=== PATIENT | female | born 2000 | race Caucasian/White ===

== ENCOUNTER 2022-10-23 13:20 | Outpatient (REF) | payer MEDICAID, SELFPAY ==
[2022-10-23 17:17] LABS: Epithelial Cells Negative HPF (Negative)
[2022-10-23 17:18] LABS: Bacteria Negative HPF (Negative); C & S Indicated? C&S Done As Ordered; Casts Negative LPF (Negative); Crystals Negative HPF (Negative); Mucus Negative (Negative); Other Cells Few Renal (Negative)
[2022-10-26 13:22] LABS: Chlamydia Result Negative (Negative); GC Result Negative (Negative)
== END 2022-10-23 13:21 | disposition home or self-care (01) ==
LOC: LBN 13:20
PROVIDERS: Visit Provider Physician Assistant Medical
DX: R30.0 Dysuria (principal)
CPT/HCPCS: 87077; 87491; 87591; 81015; 87086; 87186; 87480; 87510; 87660

== ENCOUNTER 2023-01-04 08:58 | Outpatient (REF) | payer MEDICAID, SELFPAY ==
--- OUTSIDE RECORDS SUMMARY | 2023-01-04 09:01 | XMS_ITS | CCD ---
Author Name Unknown Address [address] [place] [address] [id number] Organization Unknown Address [address] [place], [place] [id number] Care Team Providers Care Overnight Babysitter Name Role Phone CHARLES MEJIA Attending Physician [phone] CHARLES MEJIA Rounding (Secondary) Physici an [phone] Vital Signs Unknown or Not Available. Allergies Allergy Code Allergy Type Reaction Status PENICILLINS (CLASS) 28691 Drug allergy Turn blue and Active Procedures Unknown or Not Available. History of Immunizations Unknown or Not Available. Problems Unknown or Not Available. Results Unknown or Not Available. Active Medications Unknown or Not Available. Medications Administered During Visit Unknown or Not Available. Encounters Encounter Diagnosis Diagnosis Code Start Date Encounter for supervision of other normal , third trimester [id number] 04/02/2021 Social History Smoking Status Code Start Date End Date Never smoker [id number] Patient Decision Aids Unknown or Not Available. Discharge Instructions You were admitted to [facility] on 04/02/2021 12:45 with a principal diagnosis of Encounter for supervision of other normal , third trimester You were discharged from [facility] on 04/02/2021 12:46 Should you have any questions prior to discharge, please contact a member of your healthcare team. If you have left the hospital and have any questions, please contact your primary care physician. Chief Complaint and Reason For Visit Unknown or Not Available. Function Status Unknown or Not Available. Plan of Care Unknown or Not Available. Referral/Transition of Care Unknown or Not Available.
--- OUTSIDE RECORDS SUMMARY | 2023-01-04 09:01 | XMS_ITS | CCD ---
Author Name Unknown Address [address] [place] [address] [id number] Organization Unknown Address [address] [place] [address] [id number] Care Team Providers Care Shaker Out Name Role Phone ISRAELSHARMILAANG Mayberry Attending Physician [phone] Vital Signs Vital Sign Value Unit Date/Time Recent/Initial ? BP Systolic 127 mmHg 04/17/2021 05:13 Initial VS BP Diastolic 73 mmHg 04/17/2021 05:13 Initia l VS Respiratory Rate 18 bpm 04/17/2021 05:13 In itial VS Heart Rate 93 bpm 04/17/2021 05:13 Initial VS Body Temperature 36.7 degrees 04/17/2021 05:13 In itial VS O2 % BldC Oximetry 98 % 04/17/2021 06:15 Initial VS O2 % BldC Oximetry 98 % 04/17/2021 20:00 Most Recent VS BP Systolic 124 mmHg 04/18/2021 08:15 Most Re cent VS BP Diastolic 85 mmHg 04/18/2021 08:15 Most R ecent VS Respiratory Rate 16 bpm 04/18/2021 08:[address] Recent VS Heart Rate 85 bpm 04/18/2021 08:15 Most Rec ent VS Body Temperature 36.5 degrees 04/18/2021 08:[address] Recent VS Allergies Allergy Code Allergy Type Reaction Status PENICILLINS (CLASS) 99029 Drug allergy Turn blue and Active Procedures Procedure Code Procedure Type Date Delivery of Products of Conc eption, External Approach [id number] ICD-10 PCS 04/17/2021 Repair Perineum Muscle, Open Approach [id number] ICD -10 PCS 04/17/2021 Monitoring of Products of Co nception, Cardiac Rate, External Approach [id number] ICD-10 PCS 04/17/2021 History of Immunizations Unknown or Not Available. Problems Unknown or Not Available. Results DAVINA COVID GENEXPERT* - Co llect Date/Time: 04/17/2021 04:50 Test Name Code Test Result Test Units Test Ref Gerardo EDGAR 21168-7 NEGATIVE N/A Normal: Negati ve Tier- INPATIENT/ED N/A Active Medications Medications Administered During Visit Medication Dose Units Frequency Route Date/Time of Last Dose DOCUSATE SODIUM CAPSULE: 100MG 100 MG BID PO 04/18/2021 07:58 ACETAMINOPHEN TABLET: 325MG 650 MG PRN Q4H PO 04/18/2021 07:58 IBUPROFEN TABLET: 600MG 600 MG PRN Q6H PO 04/18/2021 07:55 OXYTOCIN INJ SDV: 10UNITS/1ML 10 UNITS PRN X1 IM 04/17/2021 03:15 Encounters Encounter Diagnosis Diagnosis Code Start Date Second degree perineal laceration during deliver y O701 04/17/2021 Social History Smoking Status Code Start Date End Date Never smoker [id number] Patient Decision Aids Unknown or Not Available. Discharge Instructions You were admitted to [facility] on 04/17/2021 03:59 with a principal diagnosis of Second degree perineal laceration during delivery You had the following procedures done:Delivery of Products of Conception, External ApproachRepair Perineum Muscle, Open ApproachMonitoring of Products of Conception, Cardiac Rate, External Approach You had the following tests done:DAVINA SUTTONID GENEXPERT* You were discharged from [facility] on 04/18/2021 13:45 Should you have any questions prior to discharge, please contact a member of your healthcare team. If you have left the hospital and have any questions, please contact your primary care physician. Chief Complaint and Reason For Visit Chief Complaint Date of Onset TERM LABOR 04/17/2021 Function Status Unknown or Not Available. Plan of Care Unknown or Not Available. Referral/Transition of Care Unknown or Not Available.
--- OUTSIDE RECORDS SUMMARY | 2023-01-04 09:01 | XMS_ITS | CCD ---
Author Name Unknown Address [address] [place] [address] [phone] Organization Unknown Address [address] [place], [place] [phone] Care Team Providers Care Timber Skidder Name Role Phone CHARLES MEJIA Attending Physician [phone] CHARLES MEJIA Rounding (Secondary) Physici an [phone] Vital Signs Unknown or Not Available. Allergies Allergy Code Allergy Type Reaction Status PENICILLINS (CLASS) 53801 Drug allergy Turn blue and Active Procedures Unknown or Not Available. History of Immunizations Unknown or Not Available. Problems Unknown or Not Available. Results Unknown or Not Available. Active Medications Unknown or Not Available. Medications Administered During Visit Unknown or Not Available. Encounters Encounter Diagnosis Diagnosis Code Start Date Encounter for supervision of other normal , third trimester Z3483 04/10/2021 Social History Smoking Status Code Start Date End Date Never smoker [id number] Patient Decision Aids Unknown or Not Available. Discharge Instructions You were admitted to [facility] on 04/10/2021 13:50 with a principal diagnosis of Encounter for supervision of other normal , third trimester You were discharged from [facility] on 04/10/2021 13:51 Should you have any questions prior to [...]
--- OUTSIDE RECORDS SUMMARY | 2023-01-04 09:02 | XMS_ITS | CCD ---
Author Name Unknown Address [address] [place] [address] [phone] Organization Unknown Address [address] [place], [place] [phone] Care Team Providers Care Service Assistant Name Role Phone AMERICO WOOD Attending Physician [phone] AMERICO WOOD Rounding (Secondary) Physician [phone] Vital Signs Unknown or Not Available. Allergies Allergy Code Allergy Type Reaction Status PENICILLINS (CLASS) 79847 Drug allergy Turn blue and Active Procedures Unknown or Not Available. History of Immunizations Unknown or Not Available. Problems Unknown or Not Available. Results Unknown or Not Available. Active Medications Unknown or Not Available. Medications Administered During Visit Unknown or Not Available. Encounters Encounter Diagnosis Diagnosis Code Start Date Encounter for supervision of other normal , third trimester Z3483 04/16/2021 Social History Smoking Status Code Start Date End Date Never smoker [id number] Patient Decision Aids Unknown or Not Available. Discharge Instructions You were admitted to [facility] on 04/16/2021 14:20 with a principal diagnosis of Encounter for supervision of other normal , third trimester You were discharged from [facility] on 04/16/2021 14:20 Should you have any questions prior to [...]
--- OUTSIDE RECORDS SUMMARY | 2023-01-04 09:02 | XMS_ITS | CCD ---
Author Name Unknown Address [address] [place] [address] [phone] Organization Unknown Address [address] [place] [address] [id number] Care Team Providers Care Liquor Establishment Manager Name Role Phone TIFF BUSTILLOS NERI Attending Physician [phone] Vital Signs Unknown or Not Available. Allergies Allergy Code Allergy Type Reaction Status PENICILLINS (CLASS) 19141 Drug allergy Turn blue and Active Procedures Unknown or Not Available. History of Immunizations Unknown or Not Available. Problems Unknown or Not Available. Results THYROID TESTING CASCADE - Co llect Date/Time: 11/08/2020 16:03 Test Name Code Test Result Test Units Test Ref Rang e TSH. 3014-8 0.848 uIU/mL L=0.360 H=3.74 0 AFP (OB) ALPHA FETOPROTEIN - Collect Date/Time: 11/08/2020 16:03 Test Name Code Test Result Test Units Test Ref Rang e AFP 96341-6 28.1 ng/mL AFP MoM 41878-2 0.89 MoM <2.50 Maternal Weight 73603-7 180 lbs Number of Fetuses 18323-7 1 Physician Phone Number [phone] Results Summary 89625-6 Normal risk N/A Neural tube defect riskestimate 76625-9 N/A INTERPRETATION 34536-1 Screen negative for neural tube defects. N/A RECOMMENDED FOLLOW UP 59161-6 None. N/A Specimen collection date 65354-6 11/08/20 N/A Maternal [place] [address]-5 99 N/A Calculated age at NHAN 66617-9 20 years N/A Insulin dependentdiabetes 64019-4 No N/A Patient race 46669-0 non-Black N/A Current cigarettesmoking status 56567-1 non-Smoker N/A NHAN by U/S scan 22597-0 04/23/2021 N/A GA on collection by U/[facility] 00673-2 16,2 N/A GA used in risk estimate 45707-1 Scan estimate N/A Number of Chorions 37949-8 Not applicable N/A IVF 78825-4 No N/A Prev w/ NeuralTube Defect 60872-8 No N/A Patient or father benjamin has a NTD 18471-0 No N/A Initial or repeat testing 67893-8 Initial testing N/A GENERAL TEST INFORMATION 90634-4 See Below N/A Active Medications Unknown or Not Available. Medications Administered During Visit Unknown or Not Available. 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 Discharge Instructions You were admitted to [facility] on 11/08/2020 15:26 with a principal diagnosis of Thyrotoxicosis, unspecified without thyrotoxic crisis or storm You had the following tests done:AFP (OB) ALPHA FETOPROTEINTHYROID TESTING CASCADE You were discharged from [facility] on 11/08/2020 15:26 Should you have any questions prior to [...]
--- OUTSIDE RECORDS SUMMARY | 2023-01-04 09:02 | XMS_ITS | CCD ---
Author Name Unknown Address [address] [place] [address] [id number] Organization Unknown Address [address] [place], [place] [phone] Care Team Providers Care Brand Marketing Intern Name Role Phone CHARLES MEJIA Attending Physician [phone] CHARLES MEJIA Rounding (Secondary) Physici an [phone] Vital Signs Unknown or Not Available. Allergies Allergy Code Allergy Type Reaction Status PENICILLINS (CLASS) 28945 Drug allergy Turn blue and Active Procedures Unknown or Not Available. History of Immunizations Unknown or Not Available. Problems Unknown or Not Available. Results PAP THINPREP HPV IF ASC-US* - Collect Date/Time: 06/11/2021 17:48 Test Name Code Test Result Test Units Test Ref Rang e Report (See below) N/A Active Medications Unknown or Not Available. Medications Administered During Visit Unknown or Not Available. Encounters Encounter Diagnosis Diagnosis Code Start Date Encounter for routine follow-up Z392 06/11/2021 Social History Smoking Status Code Start Date End Date Never smoker [id number] Patient Decision Aids Unknown or Not Available. Discharge Instructions You were admitted to [facility] on 06/11/2021 10:00 with a principal diagnosis of Encounter for routine follow-up You had the following tests done:PAP THINPREP HPV IF ASC-US* You were discharged from [facility] on 06/11/2021 10:00 Should you have any questions prior to [...]
--- OUTSIDE RECORDS SUMMARY | 2023-01-04 09:02 | XMS_ITS | CCD ---
Author Name Unknown Address [address] [place] [address] [phone] Organization Unknown Address [address] [place], [place] [phone] Care Team Providers Care Back Wedger Name Role Phone TIFF BUSTILLOS NERI Attending Physician [phone] Vital Signs Unknown or Not Available. Allergies Allergy Code Allergy Type Reaction Status PENICILLINS (CLASS) 10259 Drug allergy Turn blue and Active Procedures Unknown or Not Available. History of Immunizations Unknown or Not Available. Problems Unknown or Not Available. Results Unknown or Not Available. Active Medications Unknown or Not Available. Medications Administered During Visit Unknown or Not Available. Encounters Encounter Diagnosis Diagnosis Code Start Date Obesity complicating , second trimester [id number] 12/13/2020 Social History Smoking Status Code Start Date End Date Never smoker [id number] Patient Decision Aids Unknown or Not Available. Discharge Instructions You were admitted to [facility] on 12/13/2020 09:26 with a principal diagnosis of Obesity complicating , second trimester You were discharged from [facility] on 12/13/2020 09:26 Should you have any questions prior to [...]
--- OUTSIDE RECORDS SUMMARY | 2023-01-04 09:02 | XMS_ITS | CCD ---
Author Name Unknown Address [address] [place] [address] [phone] Organization Unknown Address [address] [place], [place] [id number] Care Team Providers Care Cargo Checker Name Role Phone TIFF BUSTILLOS NERI Attending Physician [phone] Vital Signs Unknown or Not Available. Allergies Allergy Code Allergy Type Reaction Status PENICILLINS (CLASS) 68841 Drug allergy Turn blue and Active Procedures Unknown or Not Available. History of Immunizations Unknown or Not Available. Problems Unknown or Not Available. Results Unknown or Not Available. Active Medications Unknown or Not Available. Medications Administered During Visit Unknown or Not Available. Encounters Encounter Diagnosis Diagnosis Code Start Date Obesity complicating , second trimester Q63642 01/03/2021 Social History Smoking Status Code Start Date End Date Never smoker [id number] Patient Decision Aids Unknown or Not Available. Discharge Instructions You were admitted to [facility] on 01/03/2021 09:14 with a principal diagnosis of Obesity complicating , second trimester You were discharged from [facility] on 01/03/2021 09:14 Should you have any questions prior to [...]
--- OUTSIDE RECORDS SUMMARY | 2023-01-04 09:03 | XMS_ITS | CCD ---
Author Name Unknown Address [address] [place] [address] [id number] Organization Unknown Address [address] [place] [address] [id number] Care Team Providers Care Corporate Bond Trader Name Role Phone TURPIN YULY NERI Attending Physician [phone] Vital Signs Unknown or Not Available. Allergies Allergy Code Allergy Type Reaction Status PENICILLINS (CLASS) 82011 Drug allergy Turn blue and Active Procedures Unknown or Not Available. History of Immunizations Unknown or Not Available. Problems Unknown or Not Available. Results GLUCOSE - 1 HOUR AFTER 50GM GLUCOLA - Collect Date/Time: 01/31/2021 10:42 Test Name Code Test Result Test Units Test Ref Rang e GLUCOSE 1 HOUR 1504-0 97 mg/dL L=0 H=135 HEMOGRAM & PLATELET W/O DIFF - Collect Date/Time: 01/31/2021 10:42 Test Name Code Test Result Test Units Test Ref Rang e WBC 6690-2 9.33 th/cmm L=5.00 H=10.00 NRBC % 82302-5 0.0 % L=0.0 H=0.0 NRBC abs count 93672-2 0.0 mil/cmm L=0.0 H=0. 0 RBC 789-8 3.91 mil/cmm L=3.90 H=5.40 HEMOGLOBIN 718-7 12.3 gm/dL L=12.0 H=16.0 HEMATOCRIT 4544-3 37 % L=37 H=47 MCV 787-2 93 fL L=82 H=92 MCH 785-6 31.5 pg L=27.0 H=31.0 MCHC 786-4 33.7 % L=32.0 H=36.0 RDW-SD 788-0 44.0 fL L=39.0 H=49.0 PLATELET COUNT 777-3 217 th/cmm L=150 H=45 0 Active Medications Unknown or Not Available. Medications Administered During Visit Unknown or Not Available. Encounters Encounter Diagnosis Diagnosis Code Start Date Low weight gain in , third trimester O2 613 01/31/2021 Social History Smoking Status Code Start Date End Date Never smoker [id number] Patient Decision Aids Unknown or Not Available. Discharge Instructions You were admitted to [facility] on 01/31/2021 09:30 with a principal diagnosis of Low weight gain in , third trimester You had the following tests done:GLUCOSE - 1 HOUR AFTER 50GM GLUCOLAHEMOGRAM & PLATELET W/O DIFF You were discharged from [facility] on 01/31/2021 09:30 Should you have any questions prior to [...]
--- OUTSIDE RECORDS SUMMARY | 2023-01-04 09:03 | XMS_ITS | CCD ---
Author Name Unknown Address [address] [place] [address] [id number] Organization Unknown Address [address] [place], [place] [phone] Care Team Providers Care Running Rigger Name Role Phone CHARLES MEJIA CNM Attending Physician [phone] Vital Signs Unknown or Not Available. Allergies Allergy Code Allergy Type Reaction Status PENICILLINS (CLASS) 59827 Drug allergy Turn blue and Active Procedures Unknown or Not Available. History of Immunizations Unknown or Not Available. Problems Unknown or Not Available. Results Unknown or Not Available. Active Medications Unknown or Not Available. Medications Administered During Visit Unknown or Not Available. Encounters Encounter Diagnosis Diagnosis Code Start Date Low weight gain in , third trimester O2 613 02/25/2021 Social History Smoking Status Code Start Date End Date Never smoker [id number] Patient Decision Aids Unknown or Not Available. Discharge Instructions You were admitted to [facility] on 02/25/2021 15:00 with a principal diagnosis of Low weight gain in , third trimester You were discharged from [facility] on 02/25/2021 15:00 Should you have any questions prior to [...]
--- OUTSIDE RECORDS SUMMARY | 2023-01-04 09:03 | XMS_ITS | CCD ---
Author Name Unknown Address [address] [place] [address] [id number] Organization Unknown Address [address] [place] [address] [phone] Care Team Providers Care Shoe Stock Associate Name Role Phone AMERICO WOOD DENISSEShawanda Attending Physician [phone] Vital Signs Unknown or Not Available. Allergies Allergy Code Allergy Type Reaction Status PENICILLINS (CLASS) 10817 Drug allergy Turn blue and Active Procedures Unknown or Not Available. History of Immunizations Unknown or Not Available. Problems Unknown or Not Available. Results VAGINAL SMEAR EVALUATION - C ollect Date/Time: 02/12/2021 16:25 Test Name Code Test Result Test Units Test Ref Rang e TOTAL HALEIGH SCORE 4 WBC s moderate N/A Yeast. Few N/A Hyphae Present N/A Clue cells Not present N/A Active Medications Unknown or Not Available. Medications Administered During Visit Unknown or Not Available. Encounters Encounter Diagnosis Diagnosis Code Start Date Other specified noninflammatory disorders of vag keron N898 02/12/2021 Social History Smoking Status Code Start Date End Date Never smoker [id number] Patient Decision Aids Unknown or Not Available. Discharge Instructions You were admitted to on 02/12/2021 15:15 with a principal diagnosis of Other specified noninflammatory disorders of vagina You had the following tests done:VAGINAL SMEAR EVALUATION You were discharged from on 02/12/2021 15:15 Should you have any questions prior to [...]
[2023-01-05 12:19] LABS: Chlamydia Result Negative (Negative); GC Result Negative (Negative)
== END 2023-01-04 08:59 | disposition home or self-care (01) ==
LOC: NCHCN 08:58
PROVIDERS: Visit Provider Family Medicine
DX: R30.0 Dysuria (principal); Z11.3 Encounter for screening for infections with a predominantly sexual mode of transmission
CPT/HCPCS: 87491; 87591

== ENCOUNTER 2023-08-06 15:08 | Outpatient (REF) | payer MEDICAID, SELFPAY ==
[2023-08-07 14:18] LABS: Chlamydia Result Negative (Negative); GC Result Negative (Negative)
== END 2023-08-06 15:09 | disposition home or self-care (01) ==
LOC: NCHCN 15:08
PROVIDERS: Referring Provider Family Medicine; Visit Provider Family Medicine
DX: N89.8 Other specified noninflammatory disorders of vagina (principal); Z11.3 Encounter for screening for infections with a predominantly sexual mode of transmission
CPT/HCPCS: 87491; 87591; 87480; 87510; 87660

== ENCOUNTER 2024-01-06 22:03 | Outpatient (REF) | payer MEDICAID, SELFPAY ==
--- OUTSIDE RECORDS SUMMARY | 2024-01-06 22:04 | XMS_ITS | Encounter Summary ---
Author Organization [facility] Address [address] [place] [id number] Care Team Providers Care Folder Operator Name Role Phone Unavailable Primary Care Provider Unavailabl e Encounter Details Date Type Department Care Team (Late st Contact Info) Description 09/13/2020 Lab Requisition [facility] Pathology & Laboratory Medicine - [address] [phone] Outr Resulting Lab, Provider Social History Tobacco Use Types Packs/Day Years Used Date Smoking Tobacco: Never Assessed Sex and Gender Information Value Date Recorded Sex Assigned at Not on file Gender Identity Not on file Sexual Orientation Not on file documented as of this encounter Plan of Treatment Not on file documented as of this encounter Procedures Procedure Name Priority Date/Time Associated Diagnosis Comments CHLAMYDIA/N. GONORRHOEAE AMPLIFIED NUCLEIC ACID Routine 09/13/2020 11:15 EDT documented in this encounter Results * CHLAMYDIA/N. GONORRHOEAE AMPLIFIED RNA (09/13/2020 11:15 EDT) Neisseria gonorrhoeae Result Negative Negative 09/16/2020 15:14 EDT [facility] Chlamydia trachomatis Result Negative Negative 09/16/2020 15:14 EDT [facility] Urine URINE / Unknown 09/13/2020 1 1:15 EDT 09/13/2020 21:55 EDT Narrative [facility] - 09/16/2020 15:14 EDT A first catch urine specimen is acceptable for detection of Gonorrhea and Chlamydia, but might detect up to 10% fewer infections when compared with vaginal and endocervical swab samples. Provider Outr Resulting Lab MICROBIOLOGY - GENERAL ORDERABLES Performing Organization Address City/State/[facility] Co de Phone Number [facility] [address] [place] [address] documented in this encounter Visit Diagnoses Not on filedocumented in this encounter
--- OUTSIDE RECORDS SUMMARY | 2024-01-06 22:04 | XMS_ITS | Encounter Summary ---
Author Organization [facility] Address [address] [place] [address] Care Team Providers Care Associate Sales Manager Name Role Phone Unavailable Primary Care Provider Unavailabl e Encounter Details Date Type Department Care Team (Late st Contact Info) Description 09/30/2020 Lab Requisition [facility] Pathology & Laboratory Medicine - [facility] [address] [place], [place] [address] Outr Resulting Lab, Provider Social History Tobacco [...] Procedure Name Priority Date/Time Associated Diagnosis Comments HEPATITIS B SURFACE ANTIGEN Routine 09/30/2020 8:59 EDT documented in this encounter Results * HEPATITIS B SURFACE ANTIGEN (09/30/2020 8:59 EDT) Hep B Surface Ag Negative Negative 10/01/2020 9:59 EDT [facility] Blood VENOUS BLOOD / Unknown 09/30/2020 8:59 EDT 09/30/2020 21:47 EDT Provider Outr Resulting Lab CHEMISTRY & BLOOD GAS ORDERABLES [facility] [address] [place] [address] documented in this encounter Visit Diagnoses Not on filedocumented in this encounter
--- OUTSIDE RECORDS SUMMARY | 2024-01-06 22:04 | XMS_ITS | Encounter Summary ---
Author Organization [facility] Address [address] [place] [address] Care Team Providers Care Experimental Mechanic Electrical Name Role Phone Unavailable Primary Care Provider Unavailabl e Encounter Details Date Type Department Care Team (Late st Contact Info) Description 09/30/2020 Lab Requisition [facility] Pathology & Laboratory Medicine - [facility] [address] [place], [place] [phone] Outr Resulting Lab, Provider Social History Tobacco [...] Procedure Name Priority Date/Time Associated Diagnosis Comments SYPHILIS SEROLOGY Routine 09/30/2020 8:59 EDT documented in this encounter Results * SYPHILIS SEROLOGY (09/30/2020 8:59 EDT) Syphilis Serology Negative Negative 10/01/2020 11:01 EDT [facility] Blood VENOUS BLOOD / Unknown 09/30/2020 8:59 EDT 09/30/2020 21:47 EDT Provider Outr Resulting Lab IMMUNOLOGY A ND SEROLOGY ORDERABLES [facility] [address] [place] [address] documented in this encounter Visit Diagnoses Not on filedocumented in this encounter
--- OUTSIDE RECORDS SUMMARY | 2024-01-06 22:04 | XMS_ITS | Encounter Summary ---
Author Organization [facility] Address [address] [place] [address] Care Team Providers Care Director Correctional Agency Name Role Phone Unavailable Primary Care Provider Unavailabl e Encounter Details Date Type Department Care Team (Late st Contact Info) Description 10/24/2022 Lab Requisition [facility] Pathology & Laboratory Medicine - [facility] [address] [place], [place] [address] Outr Resulting Lab, Provider Social History Tobacco Use Types Packs/Day Years Used Date Smoking Tobacco: Never Assessed Interpersonal Safety Answer Date Record ed Physically Hurt Never 10/15/2020 Verbally Threaten Not on file 10/15/2020 Sex and Gender Information Value Date Recorded Sex Assigned at Not on file Gender Identity Not on file Sexual Orientation Not on file documented as of this encounter Plan of Treatment Not on file documented as of this encounter Procedures Procedure Name Priority Date/Time Associated Diagnosis Comments CHLAMYDIA/N. GONORRHOEAE AMPLIFIED NUCLEIC ACID Routine 10/23/2022 13:42 EDT documented in this encounter Results * CHLAMYDIA/N. GONORRHOEAE AMPLIFIED RNA (10/23/2022 13:42 EDT) Neisseria gonorrhoeae Result Negative Negative 10/26/2022 13:17 EDT [facility] Chlamydia trachomatis Result Negative Negative 10/26/2022 13:17 EDT [facility] Swab ENTIRE VAGINA / Unknown 10/23/2022 13:42 EDT 10/25/2022 18:30 EDT Provider Outr Resulting Lab MICROBIOLOGY - GENERAL ORDERABLES [facility] [address] [place] [address] documented in this encounter Visit Diagnoses Not on filedocumented in this encounter
--- OUTSIDE RECORDS SUMMARY | 2024-01-06 22:04 | XMS_ITS | Encounter Summary ---
Author Organization [facility] Address [address] [place] [address] Care Team Providers Care First Leveler Name Role Phone Unavailable Primary Care Provider Unavailabl e Encounter Details Date Type Department Care Team (Latest Contact Info) Description 12/06/2020 10:19 EDT - 12/06/2020 23:59 EDT Hospital Encounter [facility] [address] [place] [address] Family history of congenital heart defect; Obesity in Discharge Disposition: Home or Self Care Social History Tobacco Use Types Packs/Day Years Used Date Smoking Tobacco: Never Assessed Interpersonal Safety Answer Date Record ed Physically Hurt Never 10/15/2020 Verbally Threaten Not on file 10/15/2020 Sex and Gender Information Value Date Recorded Sex Assigned at Not on file Gender Identity Not on file Sexual Orientation Not on file documented as of this encounter Discharge Disposition Disposition Code Departure Means Destination Home or Self Care documented in this encounter Plan of Treatment Not on file documented as of this encounter Procedures Procedure Name Priority Date/Time Associated Diagnosis Comments US OB DETAILED Routine 12/06/2020 10:46 EDT Family history of congenital heart defect Obesity in documented in this encounter Results * US OB DETAILED (12/06/2020 10:46 EDT) Anatomical Region Laterality Modality Pelvis Ultrasound 12/06/2020 10:2 8 EDT Narrative 12/06/2020 11:12 EDT Indication Grandmother with aortic stenosis. BMI 30.8. History ======= General History Height 165 cm Height (ft) ?5 ft Height (in) ?5 in Previous Outcomes ?2 Para ?? 1 Gutierrez children born (T) ?1 Gutierrez children born (P) ?0 Abortions (A) ??0 Gutierrez living children (L) ??1 Maternal Assessment Height 165 cm Height (ft) ?5 ft Height (in) ?5 in Physical Exam Initial weight 84 kg Initial weight (lb) ?185 lb Initial BMI ?30.79 kg/m?? Number of fetuses: 1. Dating ======= Method of dating: ??based on the external assessment Stated Dating on: ?09/03/2020 GA at stated dating date 6 w + 6 d GA by stated dating ??20 w + 2 d NHAN by stated dating: ?04/23/2021 Ultrasound examination on: 12/06/2020 GA by U/S based upon: ??AC, BPD, Femur GA by U/S ??20 w + 1 d NHAN by U/S: ?04/24/2021 Assigned: ??Dating performed on 12/06/2020, based on the external assessment (on 09/03/2020) Assigned GA ?20 w + 2 d Assigned NHAN: ??04/23/2021 General Evaluation Cardiac activity: Present. FHR 161 bpm. movements: visualized. Presentation: breech. Placenta: posterior, fundal. Umbilical cord: Cord vessels: 3 vessel cord. Cord insertion: placental insertion: normal. Amniotic fluid: Amount of AF: normal. Biometry Biometry BPD ?45.7 mm 30% 19w 6d Hadlock OFD ?59.0 mm 58% 20w 4d Eric HC 166.9 mm ?22% Chervenak AC 154.7 mm ?56% 20w 5d Hadlock Femur ??31.7 mm 48% 20w 0d Eric Cerebellum tr ??20.9 mm 58% 20w 4d Cervantes CM 5.3 mm ??57% Nicolaides Nuchal fold ?3.95 mm Humerus ?32.1 mm 70% 20w 5d Eric EFW ?337 g Calculated by: Hadlock ([id number]) EFW (lb) ?? 0 lb EFW (oz) ?? 12 oz Cephalic index 0.77 ?35% Nicolaides HC / AC ?1.08 ?7% Hadlock FL / BPD ?? 0.69 ?37% Hadlock FL / AC ?0.20 ?14% Hadlock FHR ?161 bpm Head / Face / Neck Zone Manager 6.1 mm Nasal bone 5.7 mm Extremities / Bony Struc Radius 27.1 mm 46% Chitty Ulna ?? 29.3 mm 56% 21w 0d Eric Tibia ??27.9 mm 51% 20w 1d Eric Fibula 28.2 mm 44% 20w 0d Eric Anatomy Cranium: ?? normal Lateral ventricles: ?normal Choroid plexus: ?normal Midline falx: ??normal Cavum septi pellucidi: normal Cerebellum: ?normal Cisterna magna: ?normal Parenchyma: ?normal Cerebellar lobes: ??normal Vermis: ?normal Neck: ??normal Nuchal fold: ?? normal Lips: ??normal Profile: ?? normal Nose: ??normal Maxilla: ?? normal Mandible: ??normal 4-chamber view: ?normal RVOT: ??normal LVOT: ??normal Situs: normal Aortic arch: ?? normal SVC: ?? normal IVC: ?? normal 3-vessel view: normal 5-[id number]-jqoihfe view: normal Rt lung: ?? normal Lt lung: ?? normal Diaphragm: normal Cord insertion: ?normal Stomach: ?? normal Bladder: ?? normal Genitals: ??normal Abdom. wall: ?? normal Rt kidney: normal Lt kidney: normal Liver: normal Cervical spine: ?normal Thoracic spine: ?normal Lumbar spine: ??normal Sacral spine: ??normal Skeleton: ??normal Arms: ??normal Legs: ??normal Rt arm: ?normal Lt arm: ?normal Rt hand: ?? normal Lt hand: ?? normal Rt leg: ?normal Lt leg: ?normal Rt foot: ?? normal Lt foot: ?? normal Gender: ?female Wants to know gender: ??yes Aneuploidy Screening Age ?20 yrs Echogenic focus: ?? no Include: ?? intracardiac echogenic focus Include: ?? ventriculomegaly Include: ?? nuchal fold Include: ?? echogenic bowel Include: ?? mild hydronephrosis Ventriculomegaly: ??no Nuchal fold: ?? normal Echogenic bowel: ?? no Pyelectasis: ?? no Short femur: ?? no Include: ?? short humerus Include: ?? nasal bone Short humerus: no Nasal bone: ?present Display risk: ??Risk at time of screening Background risk at time of screening ?? 1,288 Background risk at term ?1,513 Adjusted risk at time of screening 3,481 Adjusted risk at term ??4,087 Other: She has had normal results on a cell-free DNA in maternal serum test. Maternal Structures Uterus / Cervix Uterus: ?Appears normal Cervix: ?Appears normal Ovaries / Tubes / Adnexa Rt ovary: ??Visualized, normal appearance Lt ovary: ??Visualized, normal appearance Method ======== Transabdominal ultrasound examination, Voluson E10. View: Sufficient. Impression [id number] Obstetrical ultrasound with and maternal evaluation, including detailed anatomic examination This is a gutierrez gestation. Biometry is consistent with prior ultrasound dating. Anatomy appears normal as noted above; however, ultrasound cannot detect all anomalies. As per the SMFM guidelines, the following were evaluated and were normal: the cerebellum (including lobes and vermis), facial profile, the chest (including examination for masses, effusion, integrity of both sides of the diaphragm and lung parenchyma), abdomen for ascites, 12-long bones with normal architecture/position of limbs, hands and feet, placental insertion site of the umbilical cord and placenta for masses. The amniotic fluid volume is normal. There is trunk and extremity movement noted. Follow-up Follow-up as clinically indicated. DATE OF SERVICE: 12/06/2020 Procedure Note Paris Loev MD - 12/06/2020 Indication Grandmother with aortic stenosis. BMI 30.8. History ======= General History Height 165 cm Height (ft) 5 ft Height (in) 5 in Previous Outcomes 2 Para 1 Gutierrez children born (T) 1 Gutierrez children born (P) 0 Abortions (A) 0 Gutierrez living children (L) 1 Maternal Assessment Height 165 cm Height (ft) 5 ft Height (in) 5 in Physical Exam Initial weight 84 kg Initial weight (lb) 185 lb Initial BMI 30.79 kg/m?? Number of fetuses: 1. Dating ======= Method of dating: based on the external assessment Stated Dating on: 09/03/2020 GA at stated dating date 6 w + 6 d GA by stated dating 20 w + 2 d NHAN by stated datin04/23/2021 Ultrasound examination on: 12/06/2020 GA by U/S based upon: AC, BPD, Femur GA by U/S 20 w + 1 d NHAN by U/S: 04/24/2021 Assigned: Dating performed on 12/06/2020, based on the external assessment(on 09/03/2020) Assigned GA 20 w + 2 d Assigned NHAN: 04/23/2021 General Evaluation Cardiac activity: Present. FHR 161 bpm. movements: visualized. Presentation: breech. Placenta: posterior, fundal. Umbilical cord: Cord vessels: 3 vessel cord. Cord insertion: placentalinsertion: normal. Amniotic fluid: Amount of AF: normal. Biometry Biometry BPD 45.7 mm 30% 19w 6d Hadlock OFD 59.0 mm 58% 20w 4d Eric HC 166.9 mm 22% Chervenak AC 154.7 mm 56% 20w 5d Hadlock Femur 31.7 mm 48% 20w 0d Eric Cerebellum tr 20.9 mm 58% 20w 4d Cervantes CM 5.3 mm 57% Nicolaides Nuchal fold 3.95 mm Humerus 32.1 mm 70% 20w 5d Eric EFW 337 g Calculated by: Hadlock ([id number]) EFW (lb) 0 lb EFW (oz) 12 oz Cephalic index 0.77 35% Nicolaides HC / AC 1.08 7% Hadlock FL / BPD 0.69 37% Hadlock FL / AC 0.20 14% Hadlock FHR 161 bpm Head / Face / Neck Zone Manager 6.1 mm Nasal bone 5.7 mm Extremities / Bony Struc Radius 27.1 mm 46% Chitty Ulna 29.3 mm 56% 21w 0d Eric Tibia 27.9 mm 51% 20w 1d Eric Fibula 28.2 mm 44% 20w 0d Eric Anatomy Cranium: normal Lateral ventricles: normal Choroid plexus: normal Midline falx: normal Cavum septi pellucidi: normal Cerebellum: normal Cisterna magna: normal Parenchyma: normal Cerebellar lobes: normal Vermis: normal Neck: normal Nuchal fold: normal Lips: normal Profile: normal Nose: normal Maxilla: normal Mandible: normal 4-chamber view: normal RVOT: normal LVOT: normal Situs: normal Aortic arch: normal SVC: normal IVC: normal 3-vessel view: normal 1-jrxbol-azeyvug view: normal Rt lung: normal Lt lung: normal Diaphragm: normal Cord insertion: normal Stomach: normal Bladder: normal Genitals: normal Abdom. wall: normal Rt kidney: normal Lt kidney: normal Liver: normal Cervical spine: normal Thoracic spine: normal Lumbar spine: normal Sacral spine: normal Skeleton: normal Arms: normal Legs: normal Rt arm: normal Lt arm: normal Rt hand: normal Lt hand: normal Rt leg: normal Lt leg: normal Rt foot: normal Lt foot: normal Gender: female Wants to know gender: yes Aneuploidy Screening Age 20 yrs Echogenic focus: no Include: intracardiac echogenic focus Include: ventriculomegaly Include: nuchal fold Include: echogenic bowel Include: mild hydronephrosis Ventriculomegaly: no Nuchal fold: normal Echogenic bowel: no Pyelectasis: no Short femur: no Include: short humerus Include: nasal bone Short humerus: no Nasal bone: present Display risk: Risk at time of screening Background risk at time of screening 1,288 Background risk at term 1,513 Adjusted risk at time of screening 3,481 Adjusted risk at term 4,087 Other: She has had normal results on a cell-free DNA in maternalserum test. Maternal Structures Uterus / Cervix Uterus: Appears normal Cervix: Appears normal Ovaries / Tubes / Adnexa Rt ovary: Visualized, normal appearance Lt ovary: Visualized, normal appearance Method ======== Transabdominal ultrasound examination, Voluson E10. View: Sufficient. Impression [id number] Obstetrical ultrasound with and maternal evaluation, includingdetailed anatomic examination This is a gutierrez gestation. Biometry is consistent with prior ultrasound dating. Anatomy appearsnormal as noted above; however, ultrasound cannot detect allfetal anomalies. As per the SMFM guidelines, the following were evaluated and were normal:the cerebellum (including lobes and vermis), facial profile, the chest(including examination for masses, effusion, integrity of both sides ofthe diaphragm and lung parenchyma), abdomen for ascites, 12-long boneswith normal architecture/position of limbs, hands and feet, placentalinsertion site of the umbilical cord and placenta for masses. The amniotic fluid volume is normal. There is trunk and extremitymovement noted. Follow-up Follow-up as clinically indicated. DATE OF SERVICE: 12/06/2020 Swetha Jenkins CNM [facility] OB ORDERABLES documented in this encounter Visit Diagnoses Diagnosis Family history of congenital heart defect Family history of congenital anomalies Obesity in Obesity complicating , childbirth, or the puerperium, unspecified as to episode of care or not applicable documented in this encounter
--- OUTSIDE RECORDS SUMMARY | 2024-01-06 22:04 | XMS_ITS | Encounter Summary ---
Author Organization [facility] Address [address] [place] [address] Care Team Providers Care Lithographic Press Operator Name Role Phone Unavailable Primary Care Provider Unavailabl e Encounter Details Date Type Department Care Team (Late st Contact Info) Description 09/30/2020 Lab Requisition [facility] Pathology & Laboratory Medicine - [facility] [address] [place] [address] Outr Resulting Lab, Provider Social History Tobacco [...] Name Priority Date/Time Associated Diagnosis Comments HEPATITIS C AB W REFLEX TO HCV RNA BY PCR Routine 09/30/2020 8:59 EDT documented in this encounter Results * HEPATITIS C AB W REFLEX TO HCV RNA BY PCR (09/30/2020 8:59 EDT) Hep C Antibody Negative Negative 10/01/2020 10:31 EDT [facility] Blood VENOUS BLOOD / Unknown 09/30/2020 8:59 EDT 09/30/2020 21:47 EDT Provider Outr Resulting Lab CHEMISTRY & BLOOD GAS ORDERABLES [facility] [address] [place] [address] documented in this encounter Visit Diagnoses Not on filedocumented in this encounter
--- OUTSIDE RECORDS SUMMARY | 2024-01-06 22:04 | XMS_ITS | Encounter Summary ---
Author Organization [facility] Address [address] [place] [address] Care Team Providers Care Health And Safety Technician Name Role Phone Unavailable Primary Care Provider Unavailabl e Encounter Details Date Type Department Care Team (Late st Contact Info) Description 09/19/2019 Lab Requisition [facility] Pathology & Laboratory Medicine - [facility] [address] [place] [address] Unknown, Provider, Social History Tobacco Use Types Packs/Day Years Used Date Smoking Tobacco: Never Assessed Sex and Gender Information Value Date Recorded Sex Assigned at Not on file Gender Identity Not on file Sexual Orientation Not on file documented as of this encounter Plan of Treatment Not on file documented as of this encounter Procedures Procedure Name Priority Date/Time Associated Diagnosis Comments ZZCOVID-19 TEST [facility] PCR Today 09/19/2019 17:34 EDT COVID-19 TESTING Routine 09/19/2019 17:3 4 EDT documented in this encounter Results * COVID-19 TEST [facility] PCR (09/19/2019 17:34 EDT) Swab ENTIRE NASOPHARYNX / Unknown 09/19/2019 17:34 EDT 09/19/2019 21:19 EDT Provider Unknown MICROBIOLOGY - GENER AL ORDERABLES [facility] [address] [place] [address] * COVID-19 TESTING (09/19/2019 17:34 EDT) COVID-19 rt-PCR Result Negative Negative 09/20/2019 14:26 EDT [facility] Comment: Negative results do not preclude 2019-nCoV infection and should not be used as the sole basis for treatment or other patient management decisions. Negative results must be combined with clinical observations, patient history, and epidemiological information. This test has not been FDA cleared or approved. This test has been internally validated, but independent review and determination of emergency use authorization ??(EUA) by the FDA is pending. Performed on the [employer] Fast Performing Lab [facility] 09/20/2019 14:26 EDT [facility] Swab ENTIRE NASOPHARYNX / Unknown 09/19/2019 17:34 EDT 09/19/2019 21:19 EDT Provider Unknown MICROBIOLOGY - RAJAN AL ORDERABLES [facility] [address] [place] [address] documented in this encounter Visit Diagnoses Not on filedocumented in this encounter
--- OUTSIDE RECORDS SUMMARY | 2024-01-06 22:04 | XMS_ITS | Encounter Summary ---
Author Organization [facility] Address [address] [place] [address] Care Team Providers Care Warehouse Logistics Manager Name Role Phone Unavailable Primary Care Provider Unavailabl e Encounter Details Date Type Department Care Team (Late st Contact Info) Description 09/30/2020 Lab Requisition [facility] Pathology & Laboratory Medicine - [facility] [address] [place], [place] [id number] Outr Resulting Lab, Provider Social History Tobacco [...] Comments CHLAMYDIA/N. GONORRHOEAE AMPLIFIED NUCLEIC ACID Routine 09/30/2020 8:59 EDT documented in this encounter Results * CHLAMYDIA/N. GONORRHOEAE AMPLIFIED RNA (09/30/2020 8:59 EDT) Neisseria gonorrhoeae Result Negative Negative 10/01/2020 13:45 EDT [facility] Chlamydia trachomatis Result Negative Negative 10/01/2020 13:45 EDT [facility] Urine URINE / Unknown 09/30/2020 8 :59 EDT 09/30/2020 21:00 EDT Narrative [facility] - 10/01/2020 13:45 EDT A first catch urine specimen is acceptable for detection of Gonorrhea and Chlamydia, but might detect up to 10% fewer infections when compared with vaginal and endocervical swab samples. Provider Outr Resulting Lab MICROBIOLOGY - GENERAL ORDERABLES [facility] [address] [place] [address] documented in this encounter Visit Diagnoses Not on filedocumented in this encounter
--- OUTSIDE RECORDS SUMMARY | 2024-01-06 22:04 | XMS_ITS | Encounter Summary ---
Author Organization [facility] Address [address] [place] [address] Care Team Providers Care Engineering Assistant Name Role Phone Unavailable Primary Care Provider Unavailabl e Encounter Details Date Type Department Care Team (Late st Contact Info) Description 09/30/2020 Lab Requisition [facility] Pathology & Laboratory Medicine - [facility] [address] [place], [place] [id number] Outr Resulting Lab, Provider Social History Tobacco [...] Procedure Name Priority Date/Time Associated Diagnosis Comments HIV 1/2 ANTIGEN AND ANTIBODY, 4TH GENERATION Routine 09/30/2020 8:59 EDT documented in this encounter Results * HIV 1/2 ANTIGEN AND ANTIBODY, 4TH GENERATION (09/30/2020 8:59 EDT) HIV 1 and 2 Antibody/p24 Antigen, 4th Generation Negative Negative 10/01/2020 10:23 EDT [facility] Comment: If acute HIV-1 infection is suspected in a high risk ??patient, submit plasma specimen for HIV-1 RNA quantitation test. Fourth Generation assay performed on the Siemens Centaur. Blood VENOUS BLOOD / Unknown 09/30/2020 8:59 EDT 09/30/2020 21:47 EDT Provider Outr Resulting Lab IMMUNOLOGY A ND SEROLOGY ORDERABLES [facility] [address] [place] [address] documented in this encounter Visit Diagnoses Not on filedocumented in this encounter
--- OUTSIDE RECORDS SUMMARY | 2024-01-06 22:04 | XMS_ITS | Encounter Summary ---
Author Organization [facility] Address [address] [place] [address] Care Team Providers Care Shell Machine Operator Name Role Phone Unavailable Primary Care Provider Unavailabl e Encounter Details Date Type Department Care Team (Late st Contact Info) Description 01/04/2023 Lab Requisition [facility] Pathology & Laboratory Medicine - [facility] [address] [place], [place] [address] Outr Resulting Lab, Provider Social History Tobacco [...] Comments CHLAMYDIA/N. GONORRHOEAE AMPLIFIED NUCLEIC ACID Routine 01/04/2023 8:25 EDT documented in this encounter Results * CHLAMYDIA/N. GONORRHOEAE AMPLIFIED RNA (01/04/2023 8:25 EDT) Neisseria gonorrhoeae Result Negative Negative 01/05/2023 12:14 EDT [facility] Chlamydia trachomatis Result Negative Negative 01/05/2023 12:14 EDT [facility] Swab ENTIRE VAGINA / Unknown 01/04/2023 8:25 EDT 01/04/2023 21:32 EDT Provider Outr Resulting Lab MICROBIOLOGY - GENERAL ORDERABLES [facility] [address] [place] [address] documented in this encounter Visit Diagnoses Not on filedocumented in this encounter
--- OUTSIDE RECORDS SUMMARY | 2024-01-06 22:04 | XMS_ITS | Encounter Summary ---
Author Organization [facility] Address [address] [place] [address] Care Team Providers Care Patient Office Rep Name Role Phone Unavailable Primary Care Provider Unavailabl e Encounter Details Date Type Department Care Team (Late st Contact Info) Description 09/30/2020 Lab Requisition [facility] Pathology & Laboratory Medicine - [facility] [address] [place] [address] Outr Resulting Lab, Provider Social History Tobacco [...] Procedure Name Priority Date/Time Associated Diagnosis Comments RUBELLA IGG ANTIBODY Routine 09/30/2020 8:59 EDT documented in this encounter Results * RUBELLA IGG ANTIBODY (09/30/2020 8:59 EDT) Rubella IgG Ab Positive See Note 10/01/2020 10:26 EDT [facility] Comment:Positive for IgG ant ibodies to Rubella virus. Blood VENOUS BLOOD / Unknown 09/30/2020 8:59 EDT 09/30/2020 21:47 EDT Provider Outr Resulting Lab CHEMISTRY & BLOOD GAS ORDERABLES [facility] [address] [place] [address] documented in this encounter Visit Diagnoses Not on filedocumented in this encounter
--- OUTSIDE RECORDS SUMMARY | 2024-01-06 22:04 | XMS_ITS | Encounter Summary ---
Author Organization [facility] Address [address] [place] [address] Care Team Providers Care Sap Bw Developer Name Role Phone Unavailable Primary Care Provider Unavailabl e Encounter Details Date Type Department Care Team (Late st Contact Info) Description 08/06/2023 Lab Requisition [facility] Pathology & Laboratory Medicine - [address] [id number] Outr Resulting Lab, Provider Social History Tobacco [...] Comments CHLAMYDIA/N. GONORRHOEAE AMPLIFIED NUCLEIC ACID Routine 08/06/2023 8:00 EST documented in this encounter Results * CHLAMYDIA/N. GONORRHOEAE AMPLIFIED RNA (08/06/2023 8:00 EST) Neisseria gonorrhoeae Result Negative Negative 08/07/2023 14:13 EST [facility] Chlamydia trachomatis Result Negative Negative 08/07/2023 14:13 EST [facility] Swab VAGINAL STRUCTURE / Unknown 08/06/2023 8:00 EST 08/06/2023 22:51 EST Provider Outr Resulting Lab MICROBIOLOGY - GENERAL ORDERABLES [facility] [address] [place] [address] documented in this encounter Visit Diagnoses Not on filedocumented in this encounter
--- OUTSIDE RECORDS SUMMARY | 2024-01-06 22:04 | XMS_ITS | Clinical Summary ---
Author Organization [facility] Address [address] [place] [address] Care Team Providers Care Form Layer Name Role Phone Unavailable Primary Care Provider Unavailabl e Social History Tobacco Use Types Packs/Day Years Used Date Smoking Tobacco: Never Assessed Interpersonal Safety Answer Date Record ed Physically Hurt Never 10/15/2020 Verbally Threaten Not on file 10/15/2020 Sex and Gender Information Value Date Recorded Sex Assigned at Not on file Gender Identity Not on file Sexual Orientation Not on file Plan of Treatment Health Maintenance Due Date Last Done Comments Hepatitis B Vaccine (1 of 3 - 19+ 3-dose series) 12/29 COVID-19 Vaccine (2022-24 season) 2023 Hepatitis C Screen Completed 09/30/2020 Procedures Procedure Name Priority Date/Time Associated Diagnosis Comments HEPATITIS C AB W REFLEX TO HCV RNA BY PCR Routine 09/30/2020 8:59 EDT from Last 3 Months or Most Recently Relevant to Health Maintenance Results * HEPATITIS C AB W REFLEX TO HCV RNA BY PCR (09/30/2020 8:59 EDT) Hep C Antibody Negative Negative 10/01/2020 10:31 EDT [facility] Blood VENOUS BLOOD / Unknown 09/30/2020 8:59 EDT 09/30/2020 21:47 EDT Provider Outr Resulting Lab CHEMISTRY & BLOOD GAS ORDERABLES [facility] [address] [place] [address] from Last 3 Months or Most Recently Relevant to Health Maintenance Chuy Lilia R Personal/Family Self 2000 [address] [facility] [place] [address] Chuy Lilia R Personal/Family Self 2000 [address] [place] [address]
--- OUTSIDE RECORDS SUMMARY | 2024-01-06 22:04 | XMS_ITS | Encounter Summary ---
Author Organization [facility] Address [address] [place] [address] Care Team Providers Care Change Management Administrator Name Role Phone Unavailable Primary Care Provider Unavailabl e Encounter Details Date Type Department Care Team (Late st Contact Info) Description 09/30/2020 Lab Requisition [facility] Pathology & Laboratory Medicine - [facility] [address] [place], [place] [id number] Outr Resulting Lab, Provider Social History Tobacco [...] Procedure Name Priority Date/Time Associated Diagnosis Comments T3, TOTAL Routine 09/30/2020 8:59 EDT documented in this encounter Results * (ABNORMAL) T3, TOTAL (09/30/2020 8:59 EDT) T3, Total 213(H) 97 - 169 ng/dL 09/30/2020 22:43 EDT [facility] Blood VENOUS BLOOD / Unknown 09/30/2020 8:59 EDT 09/30/2020 21:47 EDT Provider Outr Resulting Lab CHEMISTRY & BLOOD GAS ORDERABLES [facility] [address] [place] [address] documented in this encounter Visit Diagnoses Not on filedocumented in this encounter
--- OUTSIDE RECORDS SUMMARY | 2024-01-06 22:04 | XMS_ITS | Referral Summary ---
Author Organization [facility] Address [address] [place] [address] Care Team Providers Care Marketing Communications Manager Name Role Phone Unavailable Primary Care [...] Orientation Not on file Plan of Treatment Not on file Procedures Procedure Name Priority Date/Time Associated Diagnosis Comments HEPATITIS C AB W REFLEX TO HCV RNA BY PCR Routine 09/30/2020 8:59 EDT from Last 3 Months or Most Recently Relevant to Health Maintenance Results * HEPATITIS C AB W REFLEX TO HCV RNA BY PCR (09/30/2020 8:59 EDT) Hep C Antibody Negative Negative 10/01/2020 10:31 EDT [facility] Blood VENOUS BLOOD / Unknown 09/30/2020 8:59 EDT 09/30/2020 21:47 EDT Provider Outr Resulting Lab CHEMISTRY & BLOOD GAS ORDERABLES [facility] [address] [place] [address] from Last 3 Months or Most Recently Relevant to Health Maintenance Wood Lilia R Personal/Family Self 2000 [address] [facility] [place] [address] Wood, Lilia R Personal/Family Self 2000 [address] [facility] [place] [address]
--- OUTSIDE RECORDS SUMMARY | 2024-01-06 22:04 | XMS_ITS | Encounter Summary ---
Author Organization [facility] Address [address] [place] [address] Care Team Providers Care Metals Analyst Name Role Phone Unavailable Primary Care Provider Unavailabl e Encounter Details Date Type Department Care Team (Late st Contact Info) Description 06/11/2021 Lab Requisition [facility] Pathology & Laboratory Medicine - [facility] [address] [place] [address] Kena Angel, [facility] [address] [place] [address] Encounter for screening for malignant neoplasm of cervix Social History Tobacco Use Types Packs/Day Years [...] Procedure Name Priority Date/Time Associated Diagnosis Comments PAP TEST Today 06/11/2021 17:48 EST documented in this encounter Results * PAP TEST (06/11/2021 17:48 EST) Specimens A. Cervix and/or Endocervix , ThinPrep Imaging System with Manual Evaluation 06/19/2021 9:10 EST [facility] Specimen Adequacy Satisfactory for Evaluation - transformation zone component present 06/19/2021 9:10 EST [facility] General Categorization Negative for intraepithelial lesion or malignancy 06/19/2021 9:10 EST [facility] Attestation . 06/19/2021 9:10 EST [facility] at 0910 Clinical History Clinical History, Signs, Symptoms, Chief Complaint, Pertaining to This Order: See below Last Menstral Period: 06/30/20 Post-?: Yes 06/19/2021 9:10 EST [facility] Performing Lab [facility] 06/19/2021 9:10 EST [facility] Scanned Images 06/19/2021 9:10 EST [facility] Papanicolaou smear specimen (specimen) CERVIX UTERI STRUCTURE / Unknown 06/11/2021 17:48 EST 06/12/2021 14:59 EST Kena Angel [facility] PATHOLOGY ORDERABLE S [facility] [address] [place] [address] documented in this encounter Visit Diagnoses Diagnosis Encounter for screening for malignant neoplasm of cervix Screening for malignant neoplasm of the cervix documented in this encounter
--- OUTSIDE RECORDS SUMMARY | 2024-01-06 22:05 | XMS_ITS ---
Author Organization Unknown Address [address] [place] [phone] Phone Care Team Providers Care Dress Finisher Name Role Phone JACKIE Ovalle Attending Unavailable MERONASHTYN BELL Primary Unavailable Results PAP THINPREP HPV IF ASC-US* - Collect Date/Time: 06/11/2021 17:48 [facility] ID: [id number] [address] [place], [place], [phone] LOINC: Test Value Unit Reference Range Code Code System Flag Report (See below) Social History Type Status Start Date End Date Code Code Syst em Smoking History Never smoker (Never Smoked) 736516625 SNOMED CT Sex Female Hospital Discharge Instructions Should you have any questions prior to discharge, please contact a member of your healthcare team. If you have left the hospital and have any questions, please contact your primary care physician. Reason For Referral No Data Found Allergies and Adverse Reactions Allergy Substance Reaction Severity Start Date Concern Status Co de Code System PENICILLINS (CLASS) Moderate Active 54481 RxN orm Plan of Treatment No Data Found Encounters Encounter Diagnosis Start Date Code Code Sys tem Encounter for routine follow-up 06/11/2021 SNOMED-CT Personal Care Team Section Performer Name Performer Role Active Date Inactive Da te
--- OUTSIDE RECORDS SUMMARY | 2024-01-06 22:05 | XMS_ITS ---
Author Organization Unknown Address [address] [place] [phone] Phone Care Team Providers Care Embroidery Worker Name Role Phone MANPREETNITIN GATIFF CNM Attending Unavailable MERON BELL Primary Unavailable Results THYROID TESTING CASCADE - Co llect Date/Time: 11/08/2020 16:03 [facility] ID: [id number] [address] [place] [address], [address] LOINC: 3016-3 Test Value Unit Reference Range Code Code System Flag TSH. 0.848 uIU/mL L=0.360 H=3.740 3014-8 LOINC AFP (OB) ALPHA FETOPROTEIN - Collect Date/Time: 11/08/2020 16:03 [facility] ID: [id number] [address] [place] [address], [id number] LOINC: 82298-1 Test Value Unit Reference Range Code Code System Flag Results Summary Normal risk 77864-3 LOINC Neural tube defect riskestimate /,000 49278-5 LOINC AFP 28.1 ng/mL 07239-7 LOINC AFP MoM 0.89 MoM <2.50 29427-5 LOINC INTERPRETATION Screen negative for neural tube defects. 09175-6 LOINC RECOMMENDED FOLLOW UP None. 85528-7 LOINC Specimen collection date 11/08/20 91541-6 LOINC Maternal date of 99 20285-1 LOINC Calculated age at NHAN 20 years 92377-9 LOINC Maternal Weight 180 lbs 09341-7 [place] [address]-9 LOINC Patient race non-Black 08779-3 LOINC Current cigarettesmoking status non-Smoker 00838-4 [facility] NHAN by U/S scan 04/23/2021 61933-0 [facility] [place] on collection by U/Sscan 16,2 87482-1 [facility] [place] used in risk estimate Scan estimate 39394-0 [facility] Number of Fetuses 1 84488-2 [facility] Number of Chorions Not applicable 34583-8 [facility] [place] [address]-2 [facility] Prev w/ [place] [address]-3 [facility] Patient or father [place] [address]-6 [facility] Initial or repeat testing Initial testing 97701-0 [facility] Physician Phone Number [phone] [facility] GENERAL TEST INFORMATION See Below 18502-8 [facility] Social History Type Status Start Date End Date Code Code Syst em Smoking History Never smoker (Never Smoked) 091483573 SNOMED CT Sex Female Hospital Discharge Instructions [...] de Code System PENICILLINS (CLASS) Moderate Active 88928 RxN orm Plan of Treatment No Data Found Encounters Encounter Diagnosis Start Date Code Code Sys tem Thyrotoxicosis, unspecified without thyrotoxic crisis or storm 11/08/2020 SNOMED-CT Personal Care Team Section Performer Name Performer Role Active Date Inactive Da te
--- OUTSIDE RECORDS SUMMARY | 2024-01-06 22:05 | XMS_ITS ---
Author Organization Unknown Address [address] [place] [phone] Phone Care Team Providers Care Under Ground Miner Name Role Phone MANPREETNITIN TIFF CNShawanda Attending Unavailable MERON BELL Primary Unavailable Social History Type Status Start Date End Date Code Code Syst em Smoking History Never smoker (Never Smoked) 436023044 SNOMED CT Sex Female Hospital Discharge Instructions [...] de Code System PENICILLINS (CLASS) Moderate Active 19748 RxN orm Plan of Treatment No Data Found Encounters Encounter Diagnosis Start Date Code Code Sys tem Obesity complicating , second trimester 12/13 SNOMED-CT Personal Care Team Section Performer Name Performer Role Active Date Inactive Da te
--- OUTSIDE RECORDS SUMMARY | 2024-01-06 22:05 | XMS_ITS ---
Author Organization Unknown Address [address] [place] [phone] Phone Care Team Providers Care Silk Conditioner Name Role Phone MANPREETNITIN TIFF CNShawanda Attending Unavailable MERON BELL Primary Unavailable Social History Type Status Start Date End Date Code Code Syst em Smoking History Never smoker (Never Smoked) 955283042 SNOMED CT Sex Female Hospital Discharge Instructions [...] de Code System PENICILLINS (CLASS) Moderate Active 74827 RxN orm Plan of Treatment No Data Found Encounters Encounter Diagnosis Start Date Code Code Sys tem Obesity complicating , second trimester 01/03 SNOMED-CT Personal Care Team Section Performer Name Performer Role Active Date Inactive Da te
--- OUTSIDE RECORDS SUMMARY | 2024-01-06 22:06 | XMS_ITS ---
Author Organization Unknown Address [address] [place] [phone] Phone Care Team Providers Care Java Technical Architect Name Role Phone GLOSS [employer] HE Attending Unavailable MERON BELL Primary Unavailable Results VAGINAL SMEAR EVALUATION - C ollect Date/Time: 02/12/2021 16:25 [facility] ID: [id number] [address] [place] [address], [address] LOINC: 22951-4 Test Value Unit Reference Range Code Code System Flag WBC s moderate Yeast. Few Hyphae Present Clue cells Not present TOTAL HALEIGH SCORE 4 Social History Type Status Start Date End Date Code Code Syst em Smoking History Never smoker (Never Smoked) 758288446 SNOMED CT Sex Female Hospital Discharge Instructions [...] de Code System PENICILLINS (CLASS) Moderate Active 81120 RxN orm Plan of Treatment No Data Found Encounters Encounter Diagnosis Start Date Code Code Sys tem Other specified noninflammatory disorders of vagina SNOMED-CT Personal Care Team Section Performer Name Performer Role Active Date Inactive Da te
--- OUTSIDE RECORDS SUMMARY | 2024-01-06 22:06 | XMS_ITS ---
Author Organization Unknown Address [address] [place] [address] [phone] Phone Care Team Providers Care Machine Stuffer Name Role Phone PAPI EMERY CNM Attending Unavailable MERONASHTYN BELL Primary Unavailable Results GLUCOSE - 1 HOUR AFTER 50GM GLUCOLA - Collect Date/Time: 01/31/2021 10:42 [facility] ID: [id number] [address] [place] [address], [address] LOINC: 1504-0 Test Value Unit Reference Range Code Code System Flag GLUCOSE 1 HOUR 97 mg/dL L=0 H=135 1504-0 LOINC HEMOGRAM & PLATELET W/O DIFF - Collect Date/Time: 01/31/2021 10:42 [facility] ID: [id number] [address] [place] [address], [address] LOINC: 00946-5 Test Value Unit Reference Range Code Code System Flag WBC 9.33 th/cmm L=5.00 H=10.00 6690-2 LOINC NRBC % 0.0 % L=0.0 H=0.0 52401-8 LOINC NRBC abs count 0.0 mil/cmm L=0.0 H=0.0 08318-1 LOINC RBC 3.91 mil/cmm L=3.90 H=5.40 789-8 LOINC HEMOGLOBIN 12.3 gm/dL L=12.0 H=16.0 718-7 LOINC HEMATOCRIT 37 % L=37 H=47 4544-3 LOINC MCV 93 fL L=82 H=92 787-2 LOINC H MCH 31.5 pg L=27.0 H=31.0 785-6 LOINC H MCHC 33.7 % L=32.0 H=36.0 786-4 LOINC RDW-SD 44.0 fL L=39.0 H=49.0 788-0 LOINC PLATELET COUNT 217 th/cmm L=150 H=450 777-3 LOINC Social History Type Status Start Date End Date Code Code Syst em Smoking History Never smoker (Never Smoked) 192442619 SNOMED CT Sex Female Hospital Discharge Instructions [...] de Code System PENICILLINS (CLASS) Moderate Active 94971 RxN orm Plan of Treatment No Data Found Encounters Encounter Diagnosis Start Date Code Code Sys tem Low weight gain in , third trimester 02/01/20 21 SNOMED-CT Personal Care Team Section Performer Name Performer Role Active Date Inactive Da te
--- OUTSIDE RECORDS SUMMARY | 2024-01-06 22:06 | XMS_ITS ---
Author Organization Unknown Address [address] [place] [address] [phone] Phone Care Team Providers Care Fruit Buying Grader Name Role Phone JACKIE SOTO CNM Attending Unavailable MERON BELL Primary Unavailable Social History Type Status Start Date End Date Code Code Syst em Smoking History Never smoker (Never Smoked) 179143504 SNOMED CT Sex Female Hospital Discharge Instructions [...] de Code System PENICILLINS (CLASS) Moderate Active 27054 RxN orm Plan of Treatment No Data Found Encounters Encounter Diagnosis Start Date Code Code Sys tem Low weight gain in , third trimester 02/26/20 21 SNOMED-CT Personal Care Team Section Performer Name Performer Role Active Date Inactive Da te
[2024-01-08 11:48] LABS: Bacterial Vaginosis (BV) Negative (Negative); Candida glabrata Negative (Negative); Candida species group Positive (Negative); Trichomonas vaginalis Negative (Negative)
[2024-01-08 14:31] LABS: Chlamydia Result Negative (Negative); GC Result Negative (Negative)
== END 2024-01-06 22:04 | disposition home or self-care (01) ==
LOC: NCHCN 22:03
PROVIDERS: Visit Provider Family Medicine
DX: N89.8 Other specified noninflammatory disorders of vagina (principal); Z11.3 Encounter for screening for infections with a predominantly sexual mode of transmission
CPT/HCPCS: 81513; 87481; 87491; 87591; 87661; 87480; 87510; 87660

== ENCOUNTER 2024-05-31 09:07 | Emergency (ER) | payer MEDICAID, SELFPAY ==
--- NOTE | 2024-05-31 09:15 | DI.RAD_ITS ---
Exam(s) XR CHEST 2V PA LATERAL EXAM: XR CHEST 2V PA LATERAL CLINICAL HISTORY: cough. TECHNIQUE: 2D digital imaging was performed. COMPARISON: No exams were available for comparison FINDINGS: 2 views: Heart size is normal. The mediastinum is not widened. Lungs are clear. No infiltrates nor pleural effusions. IMPRESSION: No acute pulmonary findings. DATA REPOSITORY: RADIATION DOSE DELIVERED:
[2024-05-31 09:16] VITALS: BP 122/73; PULSE 65; RESP 16; TEMP 36.6; O2SAT 100
[2024-05-31 09:20] VITALS: PULSE 65; RESP 16; TEMP 36.6; O2SAT 100
--- NOTE | 2024-05-31 10:04 | ED.GENADUL_ITS ---
Discharge Plan Disposition Patient Disposition: Home Condition: Stable Discharge Details Clinical Impression: Bronchitis Primary Care Provider: Amie Andrews ED Provider: Tiago Manriquez Home Meds and New Rx's Prescriptions: No Action Mirena 21 mcg/24hr (up to 8 yrs) 52 mg intrauterine device 1 device intrauterine ONCE Rx Instructions: as a single dose Discharge Instructions Instructions: Azithromycin (Systemic), Albuterol, Bronchitis, Adult ED Additional Instructions: You were seen in the emergency department for your likely bronchitis, I am treating you with an antibiotic called azithromycin, pick this up at the pharmacy tomorrow we have provided you an albuterol inhaler to go. Please use therapeutic dosing of Tylenol (acetamenophen) & Advil (ibuprofen) in an alternating fashion as follows: Take 1000mg of Tylenol every 6 hours without missing doses- that is 4 times per day. Paia in between the Tylenol dosings, take 400-600mg of Advil also on a 6 hour schedule, that is also 4 times per day. The daily maximum dosing of Tylenol is 4000mg, and the daily maximum dosing of Advil is 2400mg. This is safe to do for weeks. Please note that some common cold medications & prescription pain medications may contain acetamenophen and you need to read OTC drug labels and factor that in to maximum daily dosings. Take common cold medicine like Mucinex as well as directed. Please return for any emergent concerns like chest pain, shortness of breath or respiratory distress. Referrals: Amie Andrews [Primary Care Provider] - Discharge Data Discharge Date/Time-TO BE ENTERED AT DEPARTURE: 05/31/24 11:27 HPI General Date/Time Provider Initiated Documentation: 05/31/24 09:19 . HPI Narrative: 23 year-old female presents to ED today by POV/ambulating with a chief complaint of productive cough for one week, thick yellow/green sputum, children recently had URI's. Quality described as generalized fatigue, cough, mild shortness of breath, no radiation to fever, vomiting, chest pain, hemoptysis, inability to tolerate PO intake. Severity is described as moderate to severe. Palliating factors include nothing specific. Provoking factors include nothing specific. Patient not anticoagulated. Related Data Home Medications ?Medication ?Instructions ?Recorded ?Confirmed levonorgestrel 21 mcg/24 hr (up to 1 device intrauterine ONCE 05/31/24 05/31/24 8 years) 52 mg intrauterine device (Mirena) Allergies Allergy/AdvReac Type Severity Reaction Status Date / Time No Known Allergies Allergy Unverified 05/31/24 09:15 General Stated Complaint: RespSymp MAYI: 4 Review of Systems All systems reviewed & are unremarkable except as noted in HPI and below Exam Narrative Exam Narrative: GENERAL APPEARANCE: Well-nourished, non-toxic, awake and alert, atraumatic, no acute distress. SKIN: Warm, pink, dry, intact, without rashes/lesions/ulcerations. HEAD: Normocephalic, atraumatic, normal hair distribution for gender/age. EYES: Normal conjunctiva, no exudates on lids/lashes. ENT: Nares patent, no circumoral cyanosis, no facial swelling NECK: Supple, trachea midline, painless cervical ROM. LUNGS/CHEST: Lungs CTA bilaterally- no rhonchi/rales/wheezes diffusely, non- labored respirations, normal A/P diameter, symmetrical expansion, no chest wall deformity HEART (CV/PV): Regular rate and rhythm without murmur, no peripheral edema, no JVD. ABDOMEN: Soft, non-distended, no guarding, no tenderness. MSK: Normal ROM, no swelling/deformity to bilateral UEs or LEs, moving all extremities without weakness, no cyanosis, spine midline without tenderness, normal curvature. NEURO: Mental Status AAOx4 - alert to person, place, time, events No facial droop, no forehead involvement. Motor: No focal weakness - strength 5/5 in bilateral UEs and LEs, proximal and distal, symmetric. Sensory: sensation intact to light touch globally. Gait normal: patient ambulated without ataxia into ED room. PSYCH: euthymic, cooperative, pleasant, appropriate speech Course Vital Signs Vital signs: Vital Signs Temperature 36.6 C 05/31/24 09:16 Pulse 65 05/31/24 09:16 Respiratory Rate 16 05/31/24 09:16 Blood Pressure 122/73 05/31/24 09:16 Pulse Oximetry 100 05/31/24 09:16 Temperature 36.6 C 05/31/24 09:20 Temperature Source Temporal Artery Scan 05/31/24 09:20 Pulse 65 05/31/24 09:20 Respiratory Rate 16 05/31/24 09:20 Respiratory Effort Normal, Non-Labored 05/31/24 09:20 Respiratory Depth Normal 05/31/24 09:20 Blood Pressure 122/73 05/31/24 09:16 Blood Pressure Position Sitting 05/31/24 09:16 Pulse Oximetry 100 05/31/24 09:20 Oxygen Delivery Method Room Air 05/31/24 09:20 Oxygen Flow Rate 0 05/31/24 09:16 Pain Level 5 05/31/24 09:20 Comment coughing 05/31/24 09:16 Medical Decision Making This dictation utilizes [id number]-tm-waoy dictation software and may contain unedited grammatical errors. 23 year-old female presents to ED today by POV/ambulating with a chief complaint of productive cough for one week, thick yellow/green sputum, children recently had URI's. Quality described as generalized fatigue, cough, mild shortness of breath, no radiation to fever, vomiting, chest pain, hemoptysis, inability to tolerate PO intake. Severity is described as moderate to severe. Palliating factors include nothing specific. Provoking factors include nothing specific. Patients' medical history: Noncontributory. Family and social history: Recent sick contacts in the home of each child. Pertinent exam findings / vital signs include lungs CTA, benign abdomen, nontoxic vitals, no respiratory distress. Differential / pathologies of concern include PNA, bronchitis, viral syndrome, bacterial bronchitis. Diagnostic studies of: -XR Chest, Covid/Flu/RSV PCR - all negative. Interventions of: -azithromycin, inhaler to go. ED Course/Assessment/Plan: 23-year-old female presents with cough for a week having some thick yellow-green sputum, recent URIs per kids, given the onset and worsening over 7 days without any resolution I am providing her with an albuterol inhaler as well as empiric course of azithromycin for 5 days with strict return criteria for any further signs of respiratory distress. Findings not consistent with PNA, hypoxia. Disposition of Bronchitis. Patient verbalized understanding of the plan and return to ED criteria and engaged in shared decision making. Medical Records Medical records reviewed: Yes I reviewed the patient's medical records. Imaging Data Radiologic Study: Attestation: I personally reviewed and interpreted this imaging study as follows: Imaging: X-Ray Radiologist's impression: EXAM: XR CHEST 2V PA LATERAL CLINICAL HISTORY: cough. TECHNIQUE: 2D digital imaging was performed. COMPARISON: No exams were available for comparison FINDINGS: 2 views: Heart size is normal. The mediastinum is not widened. Lungs are clear. No infiltrates nor pleural effusions. IMPRESSION: No acute pulmonary findings. Lab Data Lab results reviewed: Yes I reviewed the patient's lab results. Labs: Laboratory Tests Range/Units 05/31/24 09:35 COVID-19 Source Nasopharynx SARS-CoV-2 (PCR) (Negative) Negative Influenza Type A (PCR) (Negative) Negative Influenza Type B (PCR) (Negative) Negative RSV (PCR) (Negative) Negative Quality:SDOH Health Related Social Needs: No Data to Display PFSH All Active Problems (Updated 05/31/24 @ 11:11 by MARSHALL Garcia) Bronchitis (Acute) Social History Smoking/Tobacco Use Status: Current every day Tobacco Type: e-cigarettes Smoking risk assessment performed?: Yes Alcohol Intake: current Alcohol Intake frequency: holidays/special occasions only Alcohol type: wine Drug use: Never Substance use type: does not use Housing: house Do you feel safe at home: Yes Do you feel safe in your relationship?: Yes Additional Social history: and children at side.
[2024-05-31 10:22] LABS: COVID-19 PCR Negative (Negative); Influenza A PCR Negative (Negative); Influenza B PCR Negative (Negative); RSV PCR Negative (Negative)
[2024-05-31 10:23] LABS: Source Nasopharynx
[2024-05-31 10:32] VITALS: BP 128/67; PULSE 69; RESP 16; TEMP 36.4; O2SAT 100
--- OUTSIDE RECORDS SUMMARY | 2024-05-31 10:52 | XMS_ITS | Encounter Summary ---
Author Organization [facility] Address [address] [place] [address] Care Team Providers Care Academic Assistant Name Role Phone None, Provider Primary Care Provider Unavailabl e Encounter Details Date Type Department Care Team (Late st Contact Info) Description 09/13/2020 Lab Requisition [facility] Pathology & Laboratory Medicine - [address] [address] Outr Resulting Lab, Provider Social History Tobacco Use Types Packs/Day Years Used Date Smoking Tobacco: Never Assessed Comments Unknown Sex and Gender Information Value Date Recorded Sex Assigned at Not on file Legal Sex Female 20:58 EDT Gender Identity Not on file Sexual Orientation [...] gonorrhoeae Result Negative Negative 09/16/2020 15:14 EDT [facility] Chlamydia trachomatis Result Negative Negative 09/16/2020 15:14 EDT [facility] Urine URINE / Unknown 09/13/2020 1 1:15 EDT 09/13/2020 21:55 EDT Narrative [facility] - 09/16/2020 15:14 EDT A first catch urine specimen is acceptable for detection of Gonorrhea and Chlamydia, but might detect up to 10% fewer infections when compared with vaginal and endocervical swab samples. us Provider Outr Resulting Lab MICROBIOLOGY - GENER AL ORDERABLES Final Result [facility] [address] [place] [address] documented in this encounter Visit Diagnoses Not on filedocumented in this encounter Care Teams Academic Assistant Relationship Specialty Start Date End Date None, Provider PCP - General 03/06/24 documented as of this encounter
--- OUTSIDE RECORDS SUMMARY | 2024-05-31 10:52 | XMS_ITS | Encounter Summary ---
Author Organization [facility] Address [address] [place] [address] Care Team Providers Care Mangle Roller Name Role Phone None, Provider Primary Care Provider Unavailabl e Encounter Details Date Type Department Care Team (Late st Contact Info) Description 09/30/2020 Lab Requisition [facility] Pathology & Laboratory Medicine - [address] [address] Outr Resulting Lab, Provider Social History Tobacco [...] 4th Generation Negative Negative 10/01/2020 10:23 EDT [facility] Comment: If acute HIV-1 infection is suspected in a high risk ??patient, submit plasma specimen for HIV-1 RNA quantitation test. Fourth Generation assay performed on the Siemens Centaur. Blood VENOUS BLOOD / Unknown 09/30/2020 8:59 EDT 09/30/2020 21:47 EDT us Provider Outr Resulting Lab IMMUNOLOGY AND SEROL OGY ORDERABLES Final Result [facility] [address] [place] [address] documented in this encounter Visit Diagnoses Not on filedocumented in this encounter Care Teams Mangle Roller Relationship Specialty Start Date End Date None, Provider PCP - General 03/06/24 documented as of this encounter
--- OUTSIDE RECORDS SUMMARY | 2024-05-31 10:52 | XMS_ITS | Encounter Summary ---
Author Organization [facility] Address [address] [place] [address] Care Team Providers Care Grinding Room Inspector Name Role Phone None, Provider Primary Care Provider Unavailabl e Encounter Details Date Type Department Care Team (Late st Contact Info) Description 09/30/2020 Lab Requisition [facility] Pathology & Laboratory Medicine - [address] [address] Outr Resulting Lab, Provider Social History Tobacco [...] Syphilis Serology Negative Negative 10/01/2020 11:01 EDT [facility] Blood VENOUS BLOOD / Unknown 09/30/2020 8:59 EDT 09/30/2020 21:47 EDT us Provider Outr Resulting Lab IMMUNOLOGY AND SEROL OGY ORDERABLES Final Result [facility] [address] [place] [address] documented in this encounter Visit Diagnoses Not on filedocumented in this encounter Care Teams Grinding Room Inspector Relationship Specialty Start Date End Date None, Provider PCP - General 03/06/24 documented as of this encounter
--- OUTSIDE RECORDS SUMMARY | 2024-05-31 10:52 | XMS_ITS | Encounter Summary ---
Author Organization [facility] Address [address] [place] [address] Care Team Providers Care Metal Mover Name Role Phone None, Provider Primary Care Provider Unavailabl e Encounter Details Date Type Department Care Team (Late st Contact Info) Description 01/04/2023 Lab Requisition [facility] Pathology & Laboratory Medicine - [facility] [address] [place] [address] Outr Resulting Lab, Provider Social History Tobacco Use Types Packs/Day Years Used Date Smoking Tobacco: Never Assessed Interpersonal Safety Answer Date Record ed Physically Hurt Never 10/15/2020 Verbally Threaten Not on file 10/15/2020 Comments Unknown Sex and Gender Information Value [...] Negative Negative 01/05/2023 12:14 EDT [facility] Chlamydia trachomatis Result Negative Negative 01/05/2023 12:14 EDT [facility] Swab ENTIRE VAGINA / Unknown 01/04/2023 8:25 EDT 01/04/2023 21:32 EDT us Provider Outr Resulting Lab MICROBIOLOGY - GENER AL ORDERABLES Final Result [facility] [address] [place] [address] documented in this encounter Visit Diagnoses Not on filedocumented in this encounter Care Teams Metal Mover Relationship Specialty Start Date End Date None, Provider PCP - General 03/06/24 documented as of this encounter
--- OUTSIDE RECORDS SUMMARY | 2024-05-31 10:52 | XMS_ITS | Encounter Summary ---
Author Organization [facility] Address [address] [place] [address] Care Team Providers Care Extrusion Die Template Maker Name Role Phone None, Provider Primary Care Provider Unavailabl e Encounter Details Date Type Department Care Team (Late st Contact Info) Description 01/07/2024 Lab Requisition [facility] Pathology & Laboratory Medicine - [facility] [address] [place] [address] Outr Resulting Lab, Provider Social History Tobacco [...] Comments CHLAMYDIA/N. GONORRHOEAE AMPLIFIED NUCLEIC ACID Routine 01/06/2024 13:45 EDT documented in this encounter Results * CHLAMYDIA/N. GONORRHOEAE AMPLIFIED NUCLEIC ACID (01/06/2024 13:45 EDT) Neisseria gonorrhoeae Result Negative Negative 01/08/2024 14:[address] [facility] Chlamydia trachomatis Result Negative Negative 01/08/2024 14:[address] [facility] Swab VAGINAL STRUCTURE / Unknown 01/06/2024 13:45 EDT 01/07/2024 21:25 EDT us Provider Outr Resulting Lab MICROBIOLOGY - GENER AL ORDERABLES Final Result [facility] [address] [place] [address] documented in this encounter Visit Diagnoses Not on filedocumented in this encounter Care Teams Extrusion Die Template Maker Relationship Specialty Start Date End Date None, Provider PCP - General 03/06/24 documented as of this encounter
--- OUTSIDE RECORDS SUMMARY | 2024-05-31 10:52 | XMS_ITS | Encounter Summary ---
Author Organization [facility] Address [address] [place] [address] Care Team Providers Care Preschool Program Director Name Role Phone Unavailable Primary Care Provider Unavailabl e Encounter Details Date Type Department Care Team (Latest Contact Info) Description 12/06/2020 10:19 EDT - 12/06/2020 23:59 EDT Hospital Encounter [facility] Obstetrics Services - [facility] [address] [place] [address] Family history of congenital heart defect; Obesity [...] Eric EFW ?337 g Calculated by: Hadlock ([id number]) EFW (lb) ?? 0 lb EFW (oz) ?? 12 oz Cephalic index 0.77 ?35% Nicolaides HC / AC ?1.08 ?7% Hadlock FL / BPD ?? 0.69 ?37% Hadlock FL / AC ?0.20 ?14% Hadlock FHR ?161 bpm Head / Face / Neck Breakfast Attendant 6.1 mm Nasal bone 5.7 mm Extremities [...] normal IVC: ?? normal 3-vessel view: normal 5-[id number]-[id number] view: normal Rt lung: ?? normal Lt [...] ultrasound examination, Voluson E10. View: Sufficient. Impression [id number] Obstetrical ultrasound with and maternal evaluation, including detailed anatomic examination This is a gutierrez gestation. Biometry is consistent with prior ultrasound dating. Anatomy appears normal as noted above; however, ultrasound cannot detect all anomalies. As per the [facility] guidelines, the following were evaluated and were [...] DATE OF SERVICE: 12/06/2020 Procedure Note Paris Love MD - 12/06/2020 Indication Grandmother with aortic [...] Eric EFW 337 g Calculated by: Hadlock ([id number]) EFW (lb) 0 lb EFW (oz) 12 oz Cephalic index 0.77 35% Nicolaides HC / AC 1.08 7% Hadlock FL / BPD 0.69 37% Hadlock FL / AC 0.20 14% Hadlock FHR 161 bpm Head / Face / Neck Breakfast Attendant 6.1 mm Nasal bone 5.7 mm Extremities [...] SVC: normal IVC: normal 3-vessel view: normal 6-[id number]-[id number] view: normal Rt lung: normal Lt lung: [...] ultrasound examination, Voluson E10. View: Sufficient. Impression [id number] Obstetrical ultrasound with and maternal evaluation, includingdetailed [...] DATE OF SERVICE: 12/06/2020 Swetha Jenkins CNM IMG OB ORDERABLES Final R esult documented in this encounter Visit Diagnoses Diagnosis Family history of congenital heart defect Family history of congenital anomalies Obesity in Obesity complicating , childbirth, or the puerperium, unspecified as to episode of care or not applicable documented in this encounter
--- OUTSIDE RECORDS SUMMARY | 2024-05-31 10:52 | XMS_ITS | Encounter Summary ---
Author Organization [facility] Address [address] [place] [address] Care Team Providers Care Associate Brand Manager Name Role Phone None, Provider Primary Care Provider Unavailabl e Encounter Details Date Type Department Care Team (Late st Contact Info) Description 09/30/2020 Lab Requisition [facility] Pathology & Laboratory Medicine - [address] [address] Outr Resulting Lab, Provider Social History Tobacco [...] Surface Ag Negative Negative 10/01/2020 9:59 EDT [facility] Blood VENOUS BLOOD / Unknown 09/30/2020 8:59 EDT 09/30/2020 21:47 EDT us Provider Outr Resulting Lab CHEMISTRY & BLOOD GA S ORDERABLES Final Result [facility] [address] [place] [address] documented in this encounter Visit Diagnoses Not on filedocumented in this encounter Care Teams Associate Brand Manager Relationship Specialty Start Date End Date None, Provider PCP - General 03/06/24 documented as of this encounter
--- OUTSIDE RECORDS SUMMARY | 2024-05-31 10:52 | XMS_ITS | Encounter Summary ---
Author Organization [facility] Address [address] [place] [address] Care Team Providers Care Supervisor Slitting And Shipping Name Role Phone None, Provider Primary Care Provider Unavailabl e Encounter Details Date Type Department Care Team (Late st Contact Info) Description 08/06/2023 Lab Requisition [facility] Pathology & Laboratory Medicine - [facility] [address] [place] [address] Outr Resulting Lab, Provider Social History Tobacco [...] gonorrhoeae Result Negative Negative 08/07/2023 14:13 EST [facility] Chlamydia trachomatis Result Negative Negative 08/07/2023 14:13 EST [facility] Swab VAGINAL STRUCTURE / Unknown 08/06/2023 8:00 EST 08/06/2023 22:51 EST us Provider Outr Resulting Lab MICROBIOLOGY - GENER AL ORDERABLES Final Result [facility] [address] [place] [address] documented in this encounter Visit Diagnoses Not on filedocumented in this encounter Care Teams Supervisor Slitting And Shipping Relationship Specialty Start Date End Date None, Provider PCP - General 03/06/24 documented as of this encounter
--- OUTSIDE RECORDS SUMMARY | 2024-05-31 10:52 | XMS_ITS | Encounter Summary ---
Author Organization [facility] Address [address] [place] [address] Care Team Providers Care Asphalt Distributor Operator Name Role Phone None, Provider Primary Care Provider Unavailabl e Encounter Details Date Type Department Care Team (Late st Contact Info) Description 01/07/2024 Lab Requisition [facility] Pathology & Laboratory Medicine - [address] [address] Outr Resulting Lab, Provider Social History Tobacco [...] Procedure Name Priority Date/Time Associated Diagnosis Comments MOLECULAR VAGINITIS/VAGINOSIS ASSAY Routine 01/06/2024 13:45 EDT documented in this encounter Results * (ABNORMAL) MOLECULAR VAGINITIS/VAGINOSIS ASSAY (01/06/2024 13:45 EDT) Alyssa Species Positive(A) Negative 01/08/20 11:42 EDT [facility] Alyssa glabrata Negative Negative 01/08/2024 11:42 EDT [facility] Trichomonas Vaginalis Negative Negative 01/08/2024 11:42 EDT [facility] BV (Bacterial vaginosis) Negative Negative 01/08/2024 11:42 EDT [facility] Swab VAGINAL STRUCTURE / Unknown 01/06/2024 13:45 EDT 01/07/2024 21:25 EDT us Provider Outr Resulting Lab MICROBIOLOGY - GENER AL ORDERABLES Final Result [facility] [address] [place] [address] documented in this encounter Visit Diagnoses Not on filedocumented in this encounter Care Teams Asphalt Distributor Operator Relationship Specialty Start Date End Date None, Provider PCP - General 03/06/24 documented as of this encounter
--- OUTSIDE RECORDS SUMMARY | 2024-05-31 10:52 | XMS_ITS | Referral Summary ---
Author Organization [facility] Address [address] [place] [address] Care Team Providers Care Senior Hris Analyst Name Role Phone None, Provider Primary Care Provider Unavailabl e Encounters Date Type Department Care Team Description 03/06/2024 Travel 03/06/2024 23:10 EDT - 03/06/2024 23:30 EDT Emergency [facility] Emergency Department [address] [place] [address] Sapna Dotson MD Injury of head, initial encounter (Primary Dx); Arm contusion, right, initial encounter Discharge Disposition: Home or Self Care from Last 3 Months Allergies Active Allergy Reactions Criticality Noted Date Comments Penicillins Anaphylaxis High 03/06/2024 Medications No known medications Social History Tobacco Use Types Packs/Day Years Used Date Smoking Tobacco: Never Assessed Interpersonal Safety Answer Date Record ed Physically Hurt Never 10/15/2020 Verbally Threaten Not on file 10/15/2020 Comments Unknown Sex and Gender Information Value Date Recorded Sex Assigned at Not on file Legal Sex Female 20:58 EDT Gender Identity Not on file Sexual Orientation Not on file Last Filed Vital Signs Vital Sign Reading Time Taken Comments Blood Pressure 124/77 03/06/20242307 EDT Pulse 83 03/06/20242307 EDT Temperature 36.4 ??C (97.5 ??F) 03/06/20242307 EDT Respiratory Rate 16 03/06/20242307 EDT Oxygen Saturation 100% 03/06/20242307 EDT Inhaled Oxygen Concentration - - Weight 64.9 kg (143 lb) 03/06/20242307 EDT Height 162.6 cm (5' 4) 03/06/20242307 EDT Body Mass Index 24.55 03/06/20242307 EDT Plan of Treatment Not on file Procedures Procedure Name Priority Date/Time Associated Diagnosis Comments HEPATITIS C AB W REFLEX TO HCV RNA BY PCR Routine 09/30/2020 8:59 EDT from Last 3 Months or Most Recently Relevant to Health Maintenance Results * HEPATITIS C AB W REFLEX TO HCV RNA BY PCR (09/30/2020 8:59 EDT) Hep C Antibody Negative Negative 10/01/2020 10:31 EDT [facility] Blood VENOUS BLOOD / Unknown 09/30/2020 8:59 EDT 09/30/2020 21:47 EDT us Provider Outr Resulting Lab CHEMISTRY & BLOOD GA S ORDERABLES Final Result [facility] [address] [place] [address] from Last 3 Months or Most Recently Relevant to Health Maintenance [place] Care Teams Senior Hris Analyst Relationship Specialty Start Date End Date None, Provider PCP - General 03/06/24
--- OUTSIDE RECORDS SUMMARY | 2024-05-31 10:52 | XMS_ITS | Encounter Summary ---
Author Organization [facility] Address [address] [place] [address] Care Team Providers Care Body Technician/Painter Name Role Phone None, Provider Primary Care Provider Unavailabl e Encounter Details Date Type Department Care Team (Late st Contact Info) Description 09/30/2020 Lab Requisition [facility] Pathology & Laboratory Medicine - [address] [address] Outr Resulting Lab, Provider Social History Tobacco [...] Ab Positive See Note 10/01/2020 10:26 EDT [facility] Comment:Positive for IgG ant ibodies to Rubella virus. Blood VENOUS BLOOD / Unknown 09/30/2020 8:59 EDT 09/30/2020 21:47 EDT us Provider Outr Resulting Lab CHEMISTRY & BLOOD GA S ORDERABLES Final Result [facility] [address] [place] [address] documented in this encounter Visit Diagnoses Not on filedocumented in this encounter Care Teams Body Technician/Painter Relationship Specialty Start Date End Date None, Provider PCP - General 03/06/24 documented as of this encounter
--- OUTSIDE RECORDS SUMMARY | 2024-05-31 10:52 | XMS_ITS | Encounter Summary ---
Author Organization [facility] Address [address] [place] [address] Care Team Providers Care Him Coder Name Role Phone None, Provider Primary Care Provider Unavailabl e Encounter Details Date Type Department Care Team (Latest Contact Info) Description 03/06/2024 Travel Social History Tobacco Use Types Packs/Day Years [...] on file documented as of this encounter Visit Diagnoses Not on filedocumented in this encounter Care Teams Him Coder Relationship Specialty Start Date End Date None, Provider PCP - General 03/06/24 documented as of this encounter
--- OUTSIDE RECORDS SUMMARY | 2024-05-31 10:52 | XMS_ITS | Encounter Summary ---
Author Organization [facility] Address [address] [place] [address] Care Team Providers Care Button Tufter Name Role Phone None, Provider Primary Care Provider Unavailabl e Encounter Details Date Type Department Care Team (Late st Contact Info) Description 10/24/2022 Lab Requisition [facility] Pathology & Laboratory Medicine - [address] [address] Outr Resulting Lab, Provider Social History Tobacco [...] gonorrhoeae Result Negative Negative 10/26/2022 13:17 EDT [facility] Chlamydia trachomatis Result Negative Negative 10/26/2022 13:17 EDT [facility] Swab ENTIRE VAGINA / Unknown 10/23/2022 13:42 EDT 10/25/2022 18:30 EDT us Provider Outr Resulting Lab MICROBIOLOGY - GENER AL ORDERABLES Final Result [facility] [address] [place] [address] documented in this encounter Visit Diagnoses Not on filedocumented in this encounter Care Teams Button Tufter Relationship Specialty Start Date End Date None, Provider PCP - General 03/06/24 documented as of this encounter
--- OUTSIDE RECORDS SUMMARY | 2024-05-31 10:52 | XMS_ITS | Encounter Summary ---
Author Organization [facility] Address [address] [place] [address] Care Team Providers Care Zoning Technician Name Role Phone None, Provider Primary Care Provider Unavailabl e Encounter Details Date Type Department Care Team (Late st Contact Info) Description 09/30/2020 Lab Requisition [facility] Pathology & Laboratory Medicine - [address] [address] Outr Resulting Lab, Provider Social History Tobacco [...] gonorrhoeae Result Negative Negative 10/01/2020 13:45 EDT [facility] Chlamydia trachomatis Result Negative Negative 10/01/2020 13:45 EDT [facility] Urine URINE / Unknown 09/30/2020 8 :59 EDT 09/30/2020 21:00 EDT Narrative [facility] - 10/01/2020 13:45 EDT A first catch urine specimen is acceptable for detection of Gonorrhea and Chlamydia, but might detect up to 10% fewer infections when compared with vaginal and endocervical swab samples. us Provider Outr Resulting Lab MICROBIOLOGY - GENER AL ORDERABLES Final Result [facility] [address] [place] [address] documented in this encounter Visit Diagnoses Not on filedocumented in this encounter Care Teams Zoning Technician Relationship Specialty Start Date End Date None, Provider PCP - General 03/06/24 documented as of this encounter
--- OUTSIDE RECORDS SUMMARY | 2024-05-31 10:52 | XMS_ITS | Encounter Summary ---
Author Organization [facility] Address [address] [place] [address] Care Team Providers Care Banking Specialist Name Role Phone None, Provider Primary Care Provider Unavailabl e Encounter Details Date Type Department Care Team (Late st Contact Info) Description 09/30/2020 Lab Requisition [facility] Pathology & Laboratory Medicine - [address] [address] Outr Resulting Lab, Provider Social History Tobacco [...] C Antibody Negative Negative 10/01/2020 10:31 EDT [facility] Blood VENOUS BLOOD / Unknown 09/30/2020 8:59 EDT 09/30/2020 21:47 EDT us Provider Outr Resulting Lab CHEMISTRY & BLOOD GA S ORDERABLES Final Result [facility] [address] [place] [address] documented in this encounter Visit Diagnoses Not on filedocumented in this encounter Care Teams Banking Specialist Relationship Specialty Start Date End Date None, Provider PCP - General 03/06/24 documented as of this encounter
--- OUTSIDE RECORDS SUMMARY | 2024-05-31 10:52 | XMS_ITS | Encounter Summary ---
Author Organization [facility] Address [address] [place] [address] Care Team Providers Care Commissioning Specialist Name Role Phone None, Provider Primary Care Provider Unavailabl e Encounter Details Date Type Department Care Team (Late st Contact Info) Description 09/30/2020 Lab Requisition [facility] Pathology & Laboratory Medicine - [address] [address] Outr Resulting Lab, Provider Social History Tobacco [...] 97 - 169 ng/dL 09/30/2020 22:43 EDT [facility] Blood VENOUS BLOOD / Unknown 09/30/2020 8:59 EDT 09/30/2020 21:47 EDT us Provider Outr Resulting Lab CHEMISTRY & BLOOD GA S ORDERABLES Final Result [facility] [address] [place] [address] documented in this encounter Visit Diagnoses Not on filedocumented in this encounter Care Teams Commissioning Specialist Relationship Specialty Start Date End Date None, Provider PCP - General 03/06/24 documented as of this encounter
--- OUTSIDE RECORDS SUMMARY | 2024-05-31 10:52 | XMS_ITS | Encounter Summary ---
Author Organization [facility] Address [address] [place] [address] Care Team Providers Care Word Processing Operator Name Role Phone None, Provider Primary Care Provider Unavailabl e Encounter Details Date Type Department Care Team (Late st Contact Info) Description 09/19/2019 Lab Requisition [facility] Pathology & [place] [address] Unknown, Provider, Social History Tobacco Use Types [...] Priority Date/Time Associated Diagnosis Comments ZZCOVID-19 TEST [facility] PCR Today 09/19/2019 17:34 EDT COVID-19 TESTING Routine 09/19/2019 17:3 4 EDT documented in this encounter Results * COVID-19 TEST [facility] PCR (09/19/2019 17:34 EDT) Swab ENTIRE NASOPHARYNX / Unknown 09/19/2019 17:34 EDT 09/19/2019 21:19 EDT us Provider Unknown MICROBIOLOGY - GENERAL ORDER ANNIKA Final Result [facility] [address] [place] [address] * COVID-19 TESTING (09/19/2019 17:34 EDT) COVID-19 rt-PCR Result Negative Negative 09/20/2019 14:26 EDT [facility] Comment: Negative results do not [...] the FDA is pending. Performed on the [employer] [facility] Performing Lab [facility] 09/20/2019 14:26 EDT [facility] Swab ENTIRE NASOPHARYNX / Unknown 09/19/2019 17:34 EDT 09/19/2019 21:19 EDT us Provider Unknown MD MICROBIOLOGY - GENERAL ORDER ANNIKA Final Result [facility] [address] [place] [address] documented in this encounter Visit Diagnoses Not on filedocumented in this encounter Care Teams Word Processing Operator Relationship Specialty Start Date End Date None, Provider PCP - General 03/06/24 documented as of this encounter
--- OUTSIDE RECORDS SUMMARY | 2024-05-31 10:52 | XMS_ITS | Encounter Summary ---
Author Organization [facility] Address [address] [place] [id number] Care Team Providers Care Corporate Licensed Broker Name Role Phone None, Provider Primary Care Provider Unavailabl e Encounter Details Date Type Department Care Team (Late st Contact Info) Description 06/11/2021 Lab Requisition [facility] Pathology & Laboratory Medicine - [address] [address] Kena Angel [address], [address] [place] [address] Encounter for screening for malignant neoplasm of [...] System with Manual Evaluation 06/19/2021 9:10 EST [facility] Specimen Adequacy Satisfactory for Evaluation - transformation zone component present 06/19/2021 9:10 EST [facility] General Categorization Negative for intraepithelial lesion or malignancy 06/19/2021 9:10 EST [facility] Attestation . 06/19/2021 9:10 EST [facility] at 0910 Clinical History Clinical History, Signs, Symptoms, Chief Complaint, Pertaining to This Order: See below Last Menstral Period: 06/30/20 Post-?: Yes 06/19/2021 9:10 EST [facility] Performing Lab [facility] 06/19/2021 9:10 EST [facility] Scanned Images 06/19/2021 9:10 EST [facility] Papanicolaou smear specimen (specimen) CERVIX UTERI STRUCTURE / Unknown 06/11/2021 17:48 EST 06/12/2021 14:59 EST us Kena Angel [facility] PATHOLOGY ORDERABLES Final Result Performing Organization Address City/State/[facility] Co de Phone Number [facility] [address] [place] [address] documented in this encounter Visit Diagnoses Diagnosis Encounter for screening for malignant neoplasm of cervix Screening for malignant neoplasm of the cervix documented in this encounter Care Teams Corporate Licensed Broker Relationship Specialty Start Date End Date None, Provider PCP - General 03/06/24 documented as of this encounter
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
--- OUTSIDE RECORDS SUMMARY | 2024-05-31 10:52 | XMS_ITS | Clinical Summary ---
Author Organization [facility] Address [address] [place] [address] Care Team Providers Care Cartographic Aide Name Role Phone None, Provider Primary Care Provider Unavailabl e Allergies Active Allergy Reactions Criticality Noted Date Comments Penicillins Anaphylaxis High 03/06/2024 Medications No known medications Encounters Date Type Department Care Team Description 03/06/2024 23:10 EDT - 03/06/2024 23:30 EDT Emergency [facility] Emergency Department [address] [place] [address] Sapna Dotson MD Injury of head, initial encounter (Primary Dx); Arm contusion, right, initial encounter Discharge Disposition: Home or Self Care 03/06/2024 Travel from Last 3 Months Social History Tobacco Use Types Packs/Day Years Used Date Smoking Tobacco: Never Assessed Interpersonal Safety Answer Date Record ed Physically Hurt Never 10/15/2020 Verbally Threaten Not on file 10/15/2020 Comments Unknown Sex and Gender Information Value Date Recorded Sex Assigned at Not on file Legal Sex Female 20:58 EDT Gender Identity Not on file Sexual Orientation Not on file Obstetrics History Last Filed Vital Signs Vital Sign Reading [...] Index 24.55 03/06/20242307 EDT Plan of Treatment Health Maintenance Due Date Last Done Comments Hepatitis B Vaccine (1 of 3 - 19+ 3-dose series) 12/29 COVID-19 Vaccine ( season) 2024 Hepatitis C Screen Completed 09/30/2020 Procedures Procedure [...] 10:31 EDT [facility] Blood VENOUS BLOOD / Unknown 09/30/2020 8:59 EDT 09/30/2020 21:47 EDT us Provider Outr Resulting Lab CHEMISTRY & BLOOD GA S ORDERABLES Final Result [facility] [address] [place] [phone] from Last 3 Months or Most Recently Relevant to Health Maintenance [place] Care Teams Cartographic Aide Relationship Specialty Start Date End Date None, Provider PCP - General 03/06/24
--- OUTSIDE RECORDS SUMMARY | 2024-05-31 10:53 | XMS_ITS ---
Author Organization Unknown Address [address] [place] [address] [phone] Phone Care Team Providers Care Internal Controls Consultant Name Role Phone MANPREETNITIN GATIFF CNShawanda Attending Unavailable MERON BELL Primary Unavailable Social History Type Status Start Date End Date Code Code Syst em Smoking History Never smoker (Never Smoked) 360223624 SNOMED CT Sex Female Hospital Discharge Instructions Should you have any questions prior to discharge, please contact a member of your healthcare team. If you have left the hospital and have any questions, please contact your primary care physician. Reason For Referral No Data Found Allergies and Adverse Reactions Allergy Substance Reaction Severity Start Date Concern Status Co de Code System PENICILLINS (CLASS) Turn blue and (SNOMED-CT: null) Moderate Active 15935 RxNorm Plan of Treatment No Data Found Encounters Encounter Diagnosis Start Date Code Code Sys tem Obesity complicating , second trimester 12/13 SNOMED-CT Personal Care Team Section Performer Name Performer Role Active Date Inactive Da te
--- OUTSIDE RECORDS SUMMARY | 2024-05-31 10:53 | XMS_ITS ---
Author Organization Unknown Address [address] [place] [phone] Phone Care Team Providers Care Venture Capitalist Name Role Phone JACKIE Ovalle Attending Unavailable MERONASHTYN BELL Primary Unavailable Results PAP THINPREP HPV IF ASC-US* - Collect Date/Time: 06/11/2021 17:48 [facility] ID: [id number] [address] [place] [address], [id number] LOINC: Test Value Unit Reference Range Code Code System Flag Report (See below) Social History Type Status Start Date End Date Code Code Syst em Smoking History Never smoker (Never Smoked) 863874370 SNOMED CT Sex Female Hospital Discharge Instructions [...] Turn blue and (SNOMED-CT: null) Moderate Active 10666 RxNorm Plan of Treatment No Data Found Encounters Encounter Diagnosis Start Date Code Code Sys tem Encounter for routine follow-up 06/11/2021 SNOMED-CT Personal Care Team Section Performer Name Performer Role Active Date Inactive Da te
--- OUTSIDE RECORDS SUMMARY | 2024-05-31 10:53 | XMS_ITS ---
Author Organization Unknown Address [address] [place] [address] [phone] Phone Care Team Providers Care Coat Baster Name Role Phone MANPREETNITIN GATIFF CNShawanda Attending Unavailable MERON BELL Primary Unavailable Results THYROID TESTING CASCADE - Co llect Date/Time: 11/08/2020 16:03 [facility] ID: [id number] [address] [place] [address], [address] LOINC: 3016-3 Test Value Unit Reference Range Code Code System Flag TSH. 0.848 uIU/mL L=0.360 H=3.740 3014-8 LOINC AFP (OB) ALPHA FETOPROTEIN - Collect Date/Time: 11/08/2020 16:03 [facility] ID: [id number] [address] [place] [address], [id number] LOINC: 62209-6 Test Value Unit Reference Range Code Code System Flag Results Summary Normal risk 40115-1 LOINC Neural tube defect riskestimate 06/10,000 11815-3 LOINC AFP 28.1 ng/mL 18802-6 LOINC AFP MoM 0.89 MoM <2.50 36158-1 LOINC INTERPRETATION Screen negative for neural tube defects. 50395-9 LOINC RECOMMENDED FOLLOW UP None. 47649-1 LOINC Specimen collection date 11/08/20 90700-0 LOINC Maternal date of 99 66913-8 LOINC Calculated age at NHAN 20 years 33545-5 LOINC Maternal Weight 180 lbs 83793-8 [place] [address]-2 LOINC Patient race non-Black 37784-2 LOINC Current cigarettesmoking status non-Smoker 53637-0 [facility] NHAN by U/S scan 04/23/2021 65110-3 [facility] GA on collection by U/Sscan 16,2 69340-1 [facility] GA used in risk estimate Scan estimate 39722-1 [facility] Number of Fetuses 1 22985-8 [facility] Number of Chorions Not applicable 84891-5 [facility] [place]F [place] [address]-4 [facility] Prev w/ Neural[place] [address]-7 [facility] Patient or [place] [address]-2 [facility] Initial or repeat testing Initial testing 27043-9 [facility] Physician Phone Number [phone] 93562-9 [facility] GENERAL TEST INFORMATION See Below 78823-9 [facility] Social History Type Status Start Date End Date Code Code Syst em Smoking History Never smoker (Never Smoked) 684352418 SNOMED CT Sex Female Hospital Discharge Instructions [...] Turn blue and (SNOMED-CT: null) Moderate Active 87062 RxNorm Plan of Treatment No Data Found Encounters Encounter Diagnosis Start Date Code Code Sys tem Thyrotoxicosis, unspecified without thyrotoxic crisis or storm 11/08/2020 SNOMED-CT Personal Care Team Section Performer Name Performer Role Active Date Inactive Da te
--- OUTSIDE RECORDS SUMMARY | 2024-05-31 10:53 | XMS_ITS ---
Author Organization Unknown Address [address] [place] [address] [phone] Phone Care Team Providers Care Anesthesia Director Name Role Phone MANPREETNITIN GATIFF CNShawanda Attending Unavailable MERON BELL Primary Unavailable Social History Type Status Start Date End Date Code Code Syst em Smoking History Never smoker (Never Smoked) 122738607 SNOMED CT Sex Female Hospital Discharge Instructions [...] Turn blue and (SNOMED-CT: null) Moderate Active 58693 RxNorm Plan of Treatment No Data Found Encounters Encounter Diagnosis Start Date Code Code Sys tem Obesity complicating , second trimester 01/03 SNOMED-CT Personal Care Team Section Performer Name Performer Role Active Date Inactive Da te
--- OUTSIDE RECORDS SUMMARY | 2024-05-31 10:54 | XMS_ITS ---
Author Organization Unknown Address [address] [place] [address] [phone] Phone Care Team Providers Care Neurology Nurse Name Role Phone JACKIE SOTO CNM Attending Unavailable MERON HENDERSONILY Primary Unavailable Social History Type Status Start Date End Date Code Code Syst em Smoking History Never smoker (Never Smoked) 477526668 SNOMED CT Sex Female Hospital Discharge Instructions [...] Turn blue and (SNOMED-CT: null) Moderate Active 38070 RxNorm Plan of Treatment No Data Found Encounters Encounter Diagnosis Start Date Code Code Sys tem Low weight gain in , third trimester 02/26/20 21 SNOMED-CT Personal Care Team Section Performer Name Performer Role Active Date Inactive Da te
--- OUTSIDE RECORDS SUMMARY | 2024-05-31 10:54 | XMS_ITS ---
Author Organization Unknown Address [address] [place] [address] [phone] Phone Care Team Providers Care Circulation Manager Name Role Phone PAPI EMERY CNM Attending Unavailable MERON RAY Primary Unavailable Results GLUCOSE - 1 HOUR AFTER 50GM GLUCOLA - Collect Date/Time: 01/31/2021 10:42 [facility] ID: [id number] [address] [place] [address], [address] LOINC: 1504-0 Test Value Unit Reference Range Code Code System Flag GLUCOSE 1 HOUR 97 mg/dL L=0 H=135 1504-0 LOINC HEMOGRAM & PLATELET W/O DIFF - Collect Date/Time: 01/31/2021 10:42 [facility] ID: [id number] [address] [place] [address], [address] LOINC: 98115-4 Test Value Unit Reference Range Code Code System Flag WBC 9.33 th/cmm L=5.00 H=10.00 6690-2 LOINC NRBC % 0.0 % L=0.0 H=0.0 52942-0 LOINC NRBC abs count 0.0 mil/cmm L=0.0 H=0.0 56919-5 LOINC RBC 3.91 mil/cmm L=3.90 H=5.40 789-8 [...] em Smoking History Never smoker (Never Smoked) 809502423 SNOMED CT Sex Female Hospital Discharge Instructions [...] Turn blue and (SNOMED-CT: null) Moderate Active 96985 RxNorm Plan of Treatment No Data Found Encounters Encounter Diagnosis Start Date Code Code Sys tem Low weight gain in , third trimester 02/01/20 21 SNOMED-CT Personal Care Team Section Performer Name Performer Role Active Date Inactive Da jayro
--- OUTSIDE RECORDS SUMMARY | 2024-05-31 10:54 | XMS_ITS ---
Author Organization Unknown Address [address] [place] [address] [phone] Phone Care Team Providers Care Civil Manager Name Role Phone GLOSS [employer]ICO HE Attending Unavailable MERON BELL Primary Unavailable Results VAGINAL SMEAR EVALUATION - C ollect Date/Time: 02/12/2021 16:25 [facility] ID: [id number] [address] [place] [address], [address] LOINC: 71184-3 Test Value Unit Reference Range Code Code System Flag WBC s moderate Yeast. Few Hyphae Present Clue cells Not present TOTAL [place] SCORE 4 Social History Type Status Start Date End Date Code Code Syst em Smoking History Never smoker (Never Smoked) 610773197 SNOMED CT Sex Female Hospital Discharge Instructions [...] Turn blue and (SNOMED-CT: null) Moderate Active 44809 RxNorm Plan of Treatment No Data Found Encounters Encounter Diagnosis Start Date Code Code Sys tem Other specified noninflammatory disorders of vagina SNOMED-CT Personal Care Team Section Performer Name Performer Role Active Date Inactive Da te
[2024-05-31] MEDS: Albuterol HFA 8 GM 60 PUFF INH IH (11:19)
[2024-05-31] MEDS: Azithromycin 250 MG TAB 500 MG PO (11:19)
[2024-05-31] MEDS: Inhaler, Assist Device 1 EACH MC (11:20)
== END 2024-05-31 11:27 | disposition home or self-care (01) ==
PROVIDERS: Emergency Provider Physician Assistant; PCP Internal Medicine
DX: J20.9 Acute bronchitis, unspecified (principal)
CPT/HCPCS: 87637; 99283; 71046; 99284